=== PATIENT | female | born 1945 | race Caucasian/White ===

== ENCOUNTER 2020-12-04 08:18 | Emergency (ER) | payer MEDICARE, SELFPAY ==
--- NOTE | ~2020-12-04 | CT_ITS ---
EXAMINATION: CT CHEST WITH CONTRAST CLINICAL INFORMATION: Left chest trauma, pain COMPARISON: Chest radiographs 03/09/2012. TECHNIQUE: Multidetector volumetric CT imaging of the chest was obtained after the administration of 65 mL of Omnipaque 350 intravenous contrast without immediate adverse reactions. Axial MIP volume rendering provided. Sagittal and coronal reformatted images were obtained. This CT examination was performed using dose optimization techniques as appropriate, variously including the following: *Automated exposure control *Adjustment of mA and/or kV according to patient size (this includes techniques or standardized protocols for targeted exams where dose is matched to indication/reason for exam; i.e. extremities or head) *Use of iterative reconstruction technique DLP: 167 mGy-cm FINDINGS: LUNGS: There is no pneumothorax or pneumomediastinum. Subsegmental atelectasis is present at the bilateral bases anterior, lateral, and posteriorly left and anterior medial and posterior right. There is no lobar or segmental airspace consolidation or groundglass opacities. Left lung has 2 small calcified granulomata lower zones inferior lingula series 4/354 and anterior basal lower lobe series 4/310. The right lung has punctate nonmineralized nodule right middle lobe under 3 mm series 4/269 and probable short linear endobronchial mucous, series 4/194 lateral upper lobe. MEDIASTINUM: Thoracic aorta normal in caliber and normal enhancement. No aneurysmal enlargement or dissection. No mediastinal hematoma. No mass or adenopathy. Heart normal in size. No pericardial effusion. PLEURA: No pleural thickening or pleural effusion. AXILLA: No lymphadenopathy. UPPER ABDOMEN: Mild hepatic steatosis. There are 2 punctate subcentimeter hypodensities right hepatic lobe too small to characterize, likely tiny cyst. No upper abdominal ascites or free air. OSSEOUS STRUCTURES: Unremarkable. CT/CT chest w con IMPRESSION: 1. No thoracic aortic enlargement or dissection. No mediastinal hematoma. 2. No pneumothorax or pneumomediastinum. No effusion. 3. Bibasilar subsegmental atelectasis. A few scattered tiny pulmonary nodules under 4 mm and probable short linear endobronchial mucous right upper lobe. 4. No visible fracture. Upper abdomen unremarkable. Reference: The Fleischner Society recommendations for management of incidentally detected pulmonary nodules in adults age 35 and greater are based on average nodule size and patient risk category. The recommendations do not apply to lung cancer screening, patients with immunosuppression, or patients with known primary cancer. Single solid nodule average size < 6 mm: Low Risk Patient: No routine follow-up. High Risk Patient: Optional CT at 12 months. Certain patients at high risk with suspicious nodule morphology, upper lobe location, or both may warrant 12-month follow-up. Multiple solid nodules average size < 6 mm: Low Risk Patient: No routine follow-up. High Risk Patient: Optional CT at 12 months. Use most suspicious nodule as guide to management. Follow-up intervals may vary according to size and risk.
[2020-12-04 11:06] VITALS: BP 181/75; PULSE 70; RESP 18; TEMP 37.1; O2SAT 99; BMI 23.8
--- NOTE | 2020-12-04 11:46 | ED.GENADULT ---
HPI - General Adult General Chief complaint: Fall Stated complaint: rib pain Time Seen by Provider: 12/04/20 11:31 Source: patient Mode of arrival: ambulatory Limitations: no limitations History of Present Illness HPI narrative: 75-year-old female who presents emergency department for evaluation of left-sided chest pain after a fall that occurred yesterday. Patient states that yesterday in the morning she was walking her dog up the stairs when the dog got excited and pulled on the leash causing the patient to fall onto the stairs. The patient landed on her left arm and left chest. She states that she developed pain immediately in her arm and chest but the pain was more mild. She states that when she woke up this morning, the pain in her left arm and left chest the severe, sharp, constant and 10/10. The pain is worse with breathing and with movement. She states that she does feel short of breath especially since she cannot take a full breath secondary to her pain. She is experiencing dyspnea on exertion as well. She denied fever, chills, nausea, vomiting, headache, neck pain, abdominal pain, loss of bowel or bladder control. Related Data Allergies Allergy/AdvReac Type Severity Reaction Status Date / Time No Known Allergies Allergy Unverified 06/13/20 15:52 [No Known Allergies*] Review of Systems Review of Systems: Yes all other systems are reviewed and are negative [facility] Past Medical History [facility] Narrative: Past medical history significant for thyroid cancer 40 years ago status post thyroidectomy. She denies tobacco use, she drinks 1 bottle of wine per week, she denies drug use. Medical History (Updated 12/04/20 @ 16:37 by Frederick Wall MD) Thyroid cancer Social History Social History Smoked in Last 30 Days: No Use of substances other than those prescribed or required for medical reasons: No Advance Directives: No Advance Directives Information Provided: No Physical Exam Vital Signs: Vital Signs: Last Vital Signs Temp 98.7 F 12/04/20 11:06 Pulse 60 12/04/20 15:35 Resp 16 12/04/20 15:35 BP 160/65 H 12/04/20 15:35 Pulse Ox 99 12/04/20 15:35 Body Mass Index 23.8 Const: General: cooperative and other (Patient is sitting upright in the stretcher, unable to move secondary to le) Orientation/consciousness: oriented to person and oriented to place Limitations: no limitations HENMT: Head: Yes normal to inspection, Yes normocephalic and Yes atraumatic Ears: external ears normal General nose exam: Normal external nose present Face and sinus: Yes normal facial exam Mouth: Normal oral and palatal mucosa present Throat: Yes posterior oropharynx normal Eyes: Periorbital: periorbital findings normal Eyelids: Yes eyelids normal Conjunctivae: conjunctivae normal Sclerae: sclerae normal Corneas: corneas normal Pupils: Equal, round and reactive pupils present Direct Ophthalmoscopy: normal light reflex Neck: Neck: Yes full ROM, Yes no lymphadenopathy, Yes no meningeal signs, Yes trachea midline and Yes supple Chest: Other: No ecchymosis, no crepitus, patient does have diffuse left lateral chest wall tenderness Chest palpation & inspection: normal inspection of the chest Resp: Effort & Inspection: normal respiratory effort and able to speak in complete sentences Auscultation: clear to auscultation bilaterally Cardio: Rate: regular rate Rhythm: regular rhythm Heart sounds: S1 normal heart sound present, S2 normal heart sound present and no murmurs GI: Inspection: Yes normal to inspection Palpation (GI): Soft to palpation, nontender, no guarding, not rigid and No hepatosplenomegaly present : General: Yes no CVA tenderness Back/Spine/Pelvis: Back: no CVA tenderness Cervical Spine: normal cervical lordosis Thoracic/Lumbar Spine: thoracic and lumbar spine normal to inspection Skin: Lesions: no lesions Rashes: no rashes Wounds: no wounds Neuro: General: oriented to person, oriented to place and no meningeal signs Cranial nerves: Yes CN's II-XII intact bilaterally and Yes Equal, round and reactive pupils present Cognition (Neuro): normal cognition Motor exam (neuro): 5/5 motor strength present throughout Extrem: Other: Ecchymosis to the patient's left proximal humerus, tenderness in this area, full range of motion with no limitations, neurovascularly intact Psych: Appearance: well kempt Mental Status: mental status grossly normal Speech and movement: Normal speech and movement present Affect: normal affect Attitude: cooperative Thought process: Normal thought process present Thought content: Normal thought content present Course Course Course Narrative: 75-year-old female who presents emergency department for evaluation of left-sided chest pain, shortness of breath and dyspnea on exertion after a fall while walking up her stairs, occurring yesterday morning , she landed on her left chest and left arm. Physical examination did reveal significant left lateral chest wall tenderness. I a.m. concerned that the patient may have multiple rib fractures and may have a pulmonary contusion therefore a CT scan of the chest with IV contrast was ordered. I also ordered trauma labs. Patient was also ordered to get Toradol 30 mg IV. 1631: The patient did get improvement with the above medications. Patient's laboratory evaluation was unremarkable. CT scan of the chest did not reveal any acute fractures or process suggesting the patient has a chest wall contusion giving her pain. The radiologist did note an incidental finding : scattered tiny pulmonary nodules under 4 mm noted bibasilarly and recommended follow-up. I did discuss this with the patient and she was advised to contact her doctor to discuss follow-up these pulmonary nodules. Patient was advised to take ibuprofen and Tylenol for pain. She was given verbal and printed instructions and discharged home. Medical Decision Making Lab Data Result diagrams: 12/04/20 12:07 12/04/20 12:07 Labs: Lab Results 12/04/20 12/04/20 12/04/20 Range/Units 12:07 12:07 12:07 WBC 6.3 (4.8-10.8) X10*3/uL RBC 4.75 (4.20-5.50) X10*6/uL Hgb 14.2 (12.0-16.0) g/dl Hct 43.0 (37-47) % MCV 90.5 (80-98) fL MCH 29.9 (27.0-33.0) pg MCHC 33.0 (31.0-35.0) g/dl RDW 12.6 (11.0-16.0) % Plt Count 242 (160-400) X10*3/uL MPV 9.6 (9.4-12.3) fL Immature Gran % (Auto) 0.5 H (0.0-0.4) % Neut % (Auto) 54.4 (45-73) % Lymph % (Auto) 27.3 (20-40) % Pettis % (Auto) 15.3 H (2-11) % Eos % (Auto) 1.9 (0-4) % Baso % (Auto) 0.6 (0-2) % Lymph # (Auto) 1.7 (1.2-4.9) X10*3/uL Pettis # (Auto) 1.0 (0.1-1.2) X10*3/uL Eos # (Auto) 0.1 (0.0-0.4) X10*3/uL Baso # (Auto) 0.0 (0.0-0.2) X10*3/uL Abs Immat Gran (auto) 0.03 (0.00-0.03) X10*3/uL Absolute Neuts (auto) 3.4 (2.0-8.3) X10*3/uL Absolute Nucleated RBC 0.000 (0.0-0.012) X10*3/uL Nucleated RBC % (auto) 0.0 (0.0-0.2) /100WBC PT 11.7 (10.8-13.0) SEC INR 1.0 (0.9-1.1) APTT 33.6 (24.1-38.0) SEC Sodium 140 (135-145) mmol/L Potassium 4.6 (3.3-5.1) mmol/L Chloride 106 (96-108) mmol/L Carbon Dioxide 26 (22-29) mmol/L Anion Gap 13 (12-20) BUN 22 H (9-16) mg/dL Creatinine 0.79 (0.5-1.4) mg/dL Estim Creat Clear Calc 47.1 Estimated GFR > 60 Random Glucose 85 (60-115) mg/dL Calcium 8.5 (8.4-10.2) mg/dL Total Bilirubin 0.8 (0.0-1.0) mg/dL AST 18 (5-31) U/L ALT 21 (0-31) U/L Alkaline Phosphatase 74 (39-117) U/L Total Protein 6.5 (6.5-8.0) g/dL Albumin 4.3 (3.5-5.0) g/dL Discharge Plan Discharge Clinical Impression: Chest wall contusion Qualifiers: Encounter type: initial encounter Laterality: left Qualified Code(s): S20.212A - Contusion of left front wall of thorax, initial encounter Contusion of arm, left Qualifiers: Encounter type: initial encounter Qualified Code(s): S40.022A - Contusion of left upper arm, initial encounter Patient Disposition: Home, Self-Care Instructions: Rib Contusion (ED) Additional Instructions: The CT scan of your chest did not reveal any rib fractures or damage to your lungs from the fall which is very encouraging. Take ibuprofen 200 mg pills, 3 pills every 6 hours as needed for pain. Take Tylenol (acetaminophen) 500 mg pills, 2 pills every 4 to 6 hours as needed for pain. The radiologist noted that you have a few small nodules in the lower part of both of your lungs. Based on my interpretation of the radiology reading below, you will need a follow-up CT scan of your lungs in 6-12 months. Please contact your doctor to discuss getting a follow-up CT scan of your lungs. To help your doctor, I did pace the radiology reading below and you can show this reading to your doctor that help determine the appropriate follow-up interval. Radiologist impression: LUNGS: There is no pneumothorax or pneumomediastinum. Subsegmental atelectasis is present at the bilateral bases anterior, lateral, and posteriorly left and anterior medial and posterior right. There is no lobar or segmental airspace consolidation or groundglass opacities. Left lung has 2 small calcified granulomata lower zones inferior lingula series 4/354 and anterior basal lower lobe series 4/310. The right lung has punctate nonmineralized nodule right middle lobe under 3 mm series 4/269 and probable short linear endobronchial mucous, series 4/194 lateral upper lobe. MEDIASTINUM: Thoracic aorta normal in caliber and normal enhancement. No aneurysmal enlargement or dissection. No mediastinal hematoma. No mass or adenopathy. Heart normal in size. No pericardial effusion. PLEURA: No pleural thickening or pleural effusion. AXILLA: No lymphadenopathy. UPPER ABDOMEN: Mild hepatic steatosis. There are 2 punctate subcentimeter hypodensities right hepatic lobe too small to characterize, likely tiny cyst. No upper abdominal ascites or free air. OSSEOUS STRUCTURES: Unremarkable. CT/CT chest w con IMPRESSION: 1. No thoracic aortic enlargement or dissection. No mediastinal hematoma. 2. No pneumothorax or pneumomediastinum. No effusion. 3. Bibasilar subsegmental atelectasis. A few scattered tiny pulmonary nodules under 4 mm and probable short linear endobronchial mucous right upper lobe. 4. No visible fracture. Upper abdomen unremarkable. Reference: The Fleischner Society recommendations for management of incidentally detected pulmonary nodules in adults age 35 and greater are based on average nodule size and patient risk category. The recommendations do not apply to lung cancer screening, patients with immunosuppression, or patients with known primary cancer. Single solid nodule average size < 6 mm: Low Risk Patient: No routine follow-up. High Risk Patient: Optional CT at 12 months. Certain patients at high risk with suspicious nodule morphology, upper lobe location, or both may warrant 12-month follow-up. Multiple solid nodules average size < 6 mm: Low Risk Patient: No routine follow-up. High Risk Patient: Optional CT at 12 months. Use most suspicious nodule as guide to management. Follow-up intervals may vary according to size and risk. Dictated By:INDER SPEARS MDSigned By:<Electronically signed by INDER SPEARS MD in [place]>
[2020-12-04 12:12] LABS: MANUAL DIFF FLAG NO
[2020-12-04 12:13] LABS: Basophils Percent Auto 0.6 % (0-2); Eosinophils Absolute Auto 0.1 X10*3/uL (0.0-0.4); Eosinophils Percent Auto 1.9 % (0-4); Hemoglobin 14.2 g/dl (12.0-16.0); Imm Gran Abs Auto 0.03 X10*3/uL (0.00-0.03); Imm Gran Pct Auto 0.5 % (0.0-0.4); Lymphocytes Absolute Auto 1.7 X10*3/uL (1.2-4.9); Lymphocytes Percent Auto 27.3 % (20-40); Mean Corpuscular Hemoglobin 29.9 pg (27.0-33.0); Mean Corpuscular Volume 90.5 fL (80-98); Mean Platelet Volume 9.6 fL (9.4-12.3); Monocytes Percent Auto 15.3 % (2-11); Neutrophils Absolute Auto 3.4 X10*3/uL (2.0-8.3); Neutrophils Percent Auto 54.4 % (45-73); Platelet Count 242 X10*3/uL (160-400); Red Blood Count 4.75 X10*6/uL (4.20-5.50); Red Cell Distribution Width 12.6 % (11.0-16.0); White Blood Count 6.3 X10*3/uL (4.8-10.8)
[2020-12-04] MEDS: Ketorolac Tromethamine 30 MG/ML VIAL IVPUSH (12:13)
[2020-12-04 12:18] LABS: Prothrombin Time 11.7 SEC (10.8-13.0)
[2020-12-04 12:21] LABS: Partial Thromboplastin Time 33.6 SEC (24.1-38.0)
[2020-12-04 12:45] LABS: Alanine Aminotransferase 21 U/L (0-31); Albumin Level 4.3 g/dL (3.5-5.0); Alkaline Phosphatase 74 U/L (39-117); Anion Gap 13 (12-20); Aspartate Amino Transferase 18 U/L (5-31); Bilirubin Total 0.8 mg/dL (0.0-1.0); Blood Urea Nitrogen 22 mg/dL (9-16); Calcium 8.5 mg/dL (8.4-10.2); Carbon Dioxide 26 mmol/L (22-29); Chloride 106 mmol/L (96-108); Creatinine Clr Calc Pharmacy 47.1; Estimated Glomerular Filt Rate > 60; Glucose Random 85 mg/dL (60-115); Potassium 4.6 mmol/L (3.3-5.1); Sodium 140 mmol/L (135-145); Total Protein 6.5 g/dL (6.5-8.0)
[2020-12-04 13:18] VITALS: BP 154/75; PULSE 63; RESP 16; O2SAT 100
--- NOTE | 2020-12-04 13:19 | PC.NURSE ---
patient reports pain somewhat improved after medicated. offered to patient that md would order stronger pain medications, patient unsure if she wants to take stronger meds. rn informed patient if pain becomes intolerable and decides to take medication to let rn know. patient agrees.
[2020-12-04] MEDS: iohexoL 350 MG/ML 75 ML INFUS..BTL IV (14:14)
[2020-12-04 15:35] VITALS: BP 160/65; PULSE 60; RESP 16; O2SAT 99
== END 2020-12-04 16:50 | disposition home or self-care (01) ==
PROVIDERS: Emergency Provider Emergency Medicine Emergency Medical Services; PCP Internal Medicine
DX: S20.212A Contusion of left front wall of thorax, initial encounter (principal); S40.022A Contusion of left upper arm, initial encounter; M79.602 Pain in left arm; R07.81 Pleurodynia; W10.9XXA Fall (on) (from) unspecified stairs and steps, initial encounter; Y93.K1 Activity, walking an animal; Y92.009 Unspecified place in unspecified non-institutional (private) residence as the place of occurrence of the external cause; Y99.9 Unspecified external cause status
CPT/HCPCS: 36415; 71260; 80053; 85025; 85610; 85730; 96374; 99284; J1885; Q9967

== ENCOUNTER 2021-05-27 09:57 | Outpatient (REF) | payer MEDICARE, SELFPAY ==
--- NOTE | ~2021-05-27 | XR_ITS ---
EXAMINATION: XR SHOULDER, RIGHT CLINICAL INFORMATION: Right shoulder pain. COMPARISON: None TECHNIQUE: AP external rotation, Grashey, scapular Y, and axillary views of the right shoulder. FINDINGS: There is osteopenia. There is no fracture or malalignment. The glenohumeral joint is unremarkable. There is mild osteoarthritis of the acromioclavicular joint, new since the prior study. XR/XR shoulder RT min 2V IMPRESSION: Unremarkable glenohumeral joint. New mild osteoarthritis of the acromioclavicular joint.
[2021-05-27 10:32] LABS: MANUAL DIFF FLAG NO
[2021-05-27 10:34] LABS: Basophils Percent Auto 0.7 % (0-2); Eosinophils Absolute Auto 0.2 X10*3/uL (0.0-0.4); Eosinophils Percent Auto 2.8 % (0-4); Hematocrit 41.5 % (37-47); Hemoglobin 13.5 g/dl (12.0-16.0); Imm Gran Abs Auto 0.02 X10*3/uL (0.00-0.03); Imm Gran Pct Auto 0.4 % (0.0-0.4); Lymphocytes Absolute Auto 1.7 X10*3/uL (1.2-4.9); Lymphocytes Percent Auto 31.5 % (20-40); Mean Corpuscular HGB Conc 32.5 g/dl (31.0-35.0); Mean Corpuscular Hemoglobin 29.4 pg (27.0-33.0); Mean Corpuscular Volume 90.4 fL (80-98); Mean Platelet Volume 9.7 fL (9.4-12.3); Monocytes Absolute Auto 0.8 X10*3/uL (0.1-1.2); Neutrophils Absolute Auto 2.7 X10*3/uL (2.0-8.3); Neutrophils Percent Auto 49.6 % (45-73); Platelet Count 231 X10*3/uL (160-400); Red Blood Count 4.59 X10*6/uL (4.20-5.50); Red Cell Distribution Width 12.4 % (11.0-16.0); White Blood Count 5.3 X10*3/uL (4.8-10.8)
[2021-05-27 10:53] LABS: Alanine Aminotransferase 15 U/L (0-31); Albumin Level 4.2 g/dL (3.5-5.0); Alkaline Phosphatase 68 U/L (39-117); Anion Gap 10 (12-20); Aspartate Amino Transferase 17 U/L (5-31); Blood Urea Nitrogen 15 mg/dL (9-16); Calcium 8.9 mg/dL (8.4-10.2); Carbon Dioxide 27 mmol/L (22-29); Chloride 108 mmol/L (96-108); Cholesterol 254 mg/dL; Estimated Glomerular Filt Rate 60; Glucose Fasting 92 mg/dL (60-99); HDL Cholesterol 59 mg/dL; LDL Cholesterol Calculated 170 mg/dl; Potassium 4.6 mmol/L (3.3-5.1); Sodium 140 mmol/L (135-145); Total Protein 6.4 g/dL (6.5-8.0); Triglycerides 127 mg/dL
[2021-05-27 11:16] LABS: Vitamin D 25-OH Total 23.1 ng/mL (>30)
== END 2021-05-27 09:58 | disposition home or self-care (01) ==
LOC: HO.XRAY 09:57
PROVIDERS: PCP Internal Medicine; Visit Provider Internal Medicine
DX: M25.511 Pain in right shoulder (principal); E78.00 Pure hypercholesterolemia, unspecified; E55.9 Vitamin D deficiency, unspecified; E03.9 Hypothyroidism, unspecified
CPT/HCPCS: 36415; 73030; 80053; 80061; 82306; 84439; 84443; 85025

== ENCOUNTER 2021-07-29 13:33 | Outpatient (REF) | payer MEDICARE, SELFPAY ==
--- NOTE | ~2021-07-29 | MM_ITS ---
EXAMINATION: BONE DENSITOMETRY CLINICAL INDICATION: Screening for osteoporosis. COMPARISON: Previous BD dated 05/16/2015 and baseline BD dated 09/25/2009. TECHNIQUE: Using a [employer] DXA System (software version: 13.1) manufactured by [employer], dual-energy x-ray absorptiometry was performed of the lumbar spine and left hip. The images are of good technical quality. Summary results are attached. FINDINGS: AP SPINE L1-L3 (excluding L4): The data of L1-L4 has been changed to exclude the L4 vertebral body, because degenerative changes at this level may cause overestimation of lumbar spine density. Current: BMD 0.923 g/cm2, Z-score -0.1, T-score -2.1, osteopenia, 4.8% increase from previous, 1.5% decrease from baseline (<5% change is not significant). Prior: BMD 0.881 g/cm2. Baseline: BMD 0.937 g/cm2. LEFT FEMUR, NECK: Current: BMD 0.573 g/cm2, Z-score -1.2, T-score -3.3, osteoporosis. Prior: BMD 0.704 g/cm2. Baseline: BMD 0.696 g/cm2. LEFT FEMUR, TOTAL: Current: BMD 0.656 g/cm2, Z-score -0.8, T-score -2.8, osteoporosis, 9.6% decrease from previous, 15.1% decrease from baseline (<5% change is not significant). Prior: BMD 0.726 g/cm2. Baseline: BMD 0.773 g/cm2. IDENTIFIED RISK FACTORS: Menopause, history of fracture (adult). HISTORY OF FRACTURE: Forearm, Age 73; Humerus, Age 22. MEDICATIONS: None listed. MM/XR DEXA axial skeleton IMPRESSION: 1. DIAGNOSIS: Osteoporosis based on the lowest T-score value of -3.3 in the femoral neck applying World Health Organization criteria. 2. 10-YEAR FRACTURE RISK PREDICTION, FRAX: According to the guidelines, FRAX calculation should only be performed on patients in the osteopenia bone density category. 3. Treatment Recommendations: NOF guidelines recommend consideration for treatment in postmenopausal women and men age 50 and older presenting with the following: -A hip or vertebral (clinical or morphometric) fracture. -T-score less than or equal to -2.5 at the femoral neck or spine after appropriate evaluation to exclude secondary causes. -Low bone mass at the hip or spine and a 10-year fracture probability by FRAX of greater than or equal to 3% for hip fracture or greater than or equal to 20% for major osteoporotic fracture based on the [place] adapted WHO algorithm. 4. Other Recommendations: All treatment decisions require clinical judgment and consideration of individual patient factors, including patient preferences, comorbidities, previous drug use, risk factors not captured in the FRAX model (e.g. frailty, falls, vitamin D deficiency, increased bone turnover, interval significant decline in bone density) and possible under or overestimation of fracture risk by FRAX. Additional medical evaluation for secondary cause of low bone mineral density may be appropriate. FUTURE SCAN RECOMMENDATION: People with diagnosed cases of osteoporosis or at high risk for fracture should have regular bone mineral density tests. For patients eligible for Medicare, routine testing is allowed once every 2 years. The testing frequency can be increased to one year for patients who have rapidly progressing disease, those who are receiving or discontinuing medical therapy to restore bone mass, or have additional risk factors.
--- NOTE | ~2021-07-29 | MM_ITS ---
EXAMINATION: MM SCREENING DIGITAL BREAST TOMOSYNTHESIS, BILATERAL CLINICAL INFORMATION: Screening. Asymptomatic. The lifetime risk of breast cancer based on the Tyrer-Cuzick Model is 3%. COMPARISON: Mammography: 04/05/2019, 01/07/2017 TECHNIQUE: Digital breast tomosynthesis is performed in both the craniocaudal and mediolateral oblique views along with computer-aided detection (CAD). Synthesized 2D images are generated from the tomosynthesis. Additional right MLO view is provided. FINDINGS: There are scattered areas of fibroglandular density (ACR BI-RADS breast composition Category b). Breast tissue composition borders on predominantly fatty. The left MLO view has an oval asymmetric density at the posterior inferior breast near skin surface likely artifact from a skin fold or possibly a dermal lesion. Patient will be recalled for additional imaging. The breasts are otherwise unremarkable with no interval mass or architectural abnormality or abnormal calcifications. The axilla are unremarkable. MM/MM tomosynthesis screening BI IMPRESSION: 1. Left: Asymmetric density posterior inferior breast on MLO view near film margin, possibly artifact from skin fold or dermal lesion. 2. Right: No mammographic evidence of malignancy. ASSESSMENT: BI-RADS 0: Incomplete - Need Additional Imaging Evaluation RECOMMENDATION: 1. Assess for dermal lesion and obtain additional views with dermal marker if applicable. Otherwise, repeat MLO targeted to the posterior inferior breast. 2. Targeted ultrasound if warranted after review of the additional views. 3. Radiology department staff will contact the patient for additional imaging. This patient's information was entered into a reminder system with a target due date for their next mammogram.
== END 2021-07-29 13:34 | disposition home or self-care (01) ==
LOC: HO.MAMMO 13:33
PROVIDERS: Visit Provider Internal Medicine
DX: Z13.820 Encounter for screening for osteoporosis (principal); Z78.0 Asymptomatic menopausal state; Z12.31 Encounter for screening mammogram for malignant neoplasm of breast
CPT/HCPCS: 77063; 77067; 77080

== ENCOUNTER 2021-08-12 13:18 | Outpatient (REF) | payer MEDICARE, SELFPAY ==
--- NOTE | ~2021-08-12 | MM_ITS ---
EXAMINATION: MM DIAGNOSTIC DIGITAL BREAST TOMOSYNTHESIS, LEFT CLINICAL INFORMATION: Recall from screening for asymmetric density posterior lower outer left breast, possibly dermal artifact. COMPARISON: Mammography: 07/29/2021, 04/05/2019, 01/07/2017 TECHNIQUE: Digital breast tomosynthesis is performed. 2D images are generated from the tomosynthesis. The following views are obtained: MLO, spot MLO FINDINGS: There are scattered areas of fibroglandular density (ACR BI-RADS breast composition Category b). The additional views show no persistent asymmetric density in the area of interest. There is no mass or architectural abnormality. Results are discussed with the patient at time of visit. MM/MM tomosynthesis added views L IMPRESSION: Additional views show no persistent asymmetric density. ASSESSMENT: BI-RADS 1: Negative RECOMMENDATION: Routine annual mammography screening. This patient's information was entered into a reminder system with a target due date for their next mammogram.
== END 2021-08-12 13:19 | disposition home or self-care (01) ==
LOC: HO.MAMMO 13:18
PROVIDERS: PCP Internal Medicine; Visit Provider Internal Medicine
DX: R92.2 Inconclusive mammogram (principal)
CPT/HCPCS: 77061; 77065

== ENCOUNTER 2022-07-31 14:17 | Outpatient (REF) | payer MEDICARE, SELFPAY ==
--- NOTE | ~2022-07-31 | MR_ITS ---
EXAMINATION: MR CERVICAL SPINE WITHOUT CONTRAST CLINICAL INFORMATION: Neuropathy with right radiating distribution. COMPARISON: Cervical spine MRI 08/16/2009. TECHNIQUE: MRI of the cervical spine was performed using routine sequences without contrast. FINDINGS: The cervical vertebral bodies maintain normal heights. There is mild anterolisthesis of C4 on C5 and C6 on C7. There is severe disc height loss at C5-C6 and moderate disc height loss at C6-C7. Subchondral endplate edema is seen at C5-C6. There is mild edema about the left-sided C4-C5 facet. No cervical cord signal abnormality is seen. The imaged intracranial contents appear normal. The extraspinal soft tissues appear normal. SPINAL LEVELS: C2-C3: No posterior disc abnormality. No spinal canal or neural foraminal stenosis. C3-C4: No posterior disc abnormality. Right facet ankylosis. Moderate left facet arthropathy. No spinal canal or neural foraminal stenosis. C4-C5: No posterior disc abnormality. Severe left and mild right facet arthropathy. No spinal canal or neural foraminal stenosis. C5-C6: Disc osteophyte complex with uncovertebral hypertrophy and ligamentum flavum infolding resulting in progressive now moderate spinal canal stenosis. Moderate facet arthropathy. Severe bilateral neural foraminal stenosis, progressed from prior. C6-C7: Disc osteophyte complex with ligamentum flavum infolding and uncovertebral hypertrophy resulting in severe spinal canal stenosis and mild left neural foraminal stenosis. C7-T1: Disc osteophyte complex asymmetric to the left with uncovertebral hypertrophy resulting in progressive moderate left neural foraminal stenosis. No spinal canal stenosis. MR/MR cervical spine wo con IMPRESSION: 1. Multilevel degenerative spondylotic changes with interval progression compared with 2008. 2. At C5-C6 there is progressive now moderate spinal canal stenosis and severe bilateral neural foraminal stenosis. 3. At C6-C7 there is progressive severe spinal canal stenosis and mild left neural foraminal stenosis. 4. At C7-T1 there is progressive moderate left neural foraminal stenosis.
== END 2022-07-31 14:18 | disposition home or self-care (01) ==
LOC: HO.MRI 14:17
PROVIDERS: Visit Provider Internal Medicine
DX: G56.91 Unspecified mononeuropathy of right upper limb (principal)
CPT/HCPCS: 72141

== ENCOUNTER 2022-08-21 07:04 | Outpatient (REF) | payer MEDICARE, SELFPAY ==
[2022-08-21 07:13] LABS: MANUAL DIFF FLAG NO
[2022-08-21 07:30] LABS: Basophils Absolute Auto 0.1 X10*3/uL (0.0-0.2); Basophils Percent Auto 0.9 % (0-2); Eosinophils Absolute Auto 0.3 X10*3/uL (0.0-0.4); Eosinophils Percent Auto 4.9 % (0-4); Hematocrit 41.3 % (37.0-47.0); Hemoglobin 13.6 g/dl (12.0-16.0); Imm Gran Abs Auto 0.02 X10*3/uL (0.00-0.03); Imm Gran Pct Auto 0.3 % (0.0-0.4); Lymphocytes Absolute Auto 2.1 X10*3/uL (1.2-4.9); Lymphocytes Percent Auto 36.1 % (20-40); Mean Corpuscular HGB Conc 32.9 g/dl (31.0-35.0); Mean Corpuscular Hemoglobin 29.5 pg (27.0-33.0); Mean Corpuscular Volume 89.6 fL (80.0-98.0); Monocytes Absolute Auto 0.9 X10*3/uL (0.1-1.2); Monocytes Percent Auto 15.6 % (2-11); Neutrophils Absolute Auto 2.4 x10*3/uL (2.0-8.3); Neutrophils Percent Auto 42.2 % (45-73); Platelet Count 225 X10*3/uL (160-400); Red Blood Count 4.61 X10*6/uL (4.20-5.50); Red Cell Distribution Width 13.2 % (11.0-16.0); White Blood Count 5.8 X10*3/uL (4.8-10.8)
[2022-08-21 07:52] LABS: Alanine Aminotransferase 19 U/L (0-31); Albumin Level 4.2 g/dL (3.5-5.0); Alkaline Phosphatase 72 U/L (39-117); Anion Gap 14 (12-20); Aspartate Amino Transferase 19 U/L (5-31); Bilirubin Total 0.6 mg/dL (0.0-1.0); Blood Urea Nitrogen 22 mg/dL (9-16); Carbon Dioxide 25 mmol/L (22-29); Chloride 107 mmol/L (96-108); Cholesterol 291 mg/dL; Estimated Glomerular Filt Rate 58; Glucose Fasting 100 mg/dL (60-99); HDL Cholesterol 57 mg/dL; LDL Cholesterol Calculated 214 mg/dl; Potassium 4.3 mmol/L (3.3-5.1); Sodium 142 mmol/L (135-145); Total Protein 6.5 g/dL (6.5-8.0); Triglycerides 104 mg/dL
[2022-08-21 08:15] LABS: Free T4 (Free Thyroxine) 1.08 ng/dL (0.71-1.85); Thyroid Stimulating Hormone 5.15 uIU/mL (0.32-4.0)
[2022-08-21 08:38] LABS: Vitamin D 25-OH Total 21.4 ng/mL (>30)
== END 2022-08-21 07:05 | disposition home or self-care (01) ==
LOC: HO.LAB 07:04
PROVIDERS: PCP Internal Medicine; Visit Provider Internal Medicine
DX: E03.9 Hypothyroidism, unspecified (principal); E78.00 Pure hypercholesterolemia, unspecified; E55.9 Vitamin D deficiency, unspecified
CPT/HCPCS: 36415; 80053; 80061; 82306; 84439; 84443; 85025

== ENCOUNTER 2022-12-29 08:33 | Outpatient (REF) | payer MEDICARE, SELFPAY ==
[2022-12-29 12:22] LABS: Cholesterol 243 mg/dL; HDL Cholesterol 59 mg/dL; LDL Cholesterol Calculated 163 mg/dl; Triglycerides 105 mg/dL
== END 2022-12-29 08:34 | disposition home or self-care (01) ==
LOC: HO.HMGCLDS 08:33
PROVIDERS: PCP Internal Medicine; Visit Provider Internal Medicine
DX: E78.00 Pure hypercholesterolemia, unspecified (principal)
CPT/HCPCS: 36415; 80061

== ENCOUNTER 2023-03-19 19:24 | Emergency (ER) | payer MEDICARE, SELFPAY ==
[2023-03-19 19:38] VITALS: BP 119/77; PULSE 80; RESP 18; TEMP 36.6; O2SAT 100
--- NOTE | 2023-03-19 19:39 | ED_ITS ---
HPI - General Adult General Chief complaint: General Medical Stated complaint: R leg swelling Source: patient Mode of arrival: ambulatory Limitations: no limitations History of Present Illness HPI narrative: Patient is a 77 year old assigned female at with no reported medical history presenting to the emergency department today with right lower leg swelling and pain. Patient states that she noticed that her right lower leg was significantly more swollen than her left leg today. Patient states that she was working in the garden yesterday and noticed a red spot on the front of her leg today. Patient states that she was at the urgent care and they recommended she come to the ER. Patient denies any dizziness, lightheadedness, abdominal pain, nausea, vomiting, fever, chills, blurry vision, double vision, loss of vision, chest pain, difficulty breathing, shortness of breath, back pain, night sweats, pain with urination, increased urinary frequency, increased urinary urgency, blood in her urine or stool, syncope or a near syncopal episode, recent trauma or falls, bowel incontinence, bladder incontinence, bowel retention, bladder retention, or any other complaints at this time. Onset (ago): day(s) (1) Location: right and lower extremity Severity: mild Severity scale (1-10): 3 Quality: aching Pain Consistency: constant Relieving factors: none Exacerbating factors: none Associated symptoms: denies other symptoms Treatments prior to arrival: none Related Data Allergies Allergy/AdvReac Type Severity Reaction Status Date / Time No Known Allergies Allergy Verified 03/19/23 19:38 [No Known Allergies*] Review of Systems Constitutional: Constitutional: Reports no additional constitutional complaints, Denies chills, Denies fever(s) and Denies night sweats Eyes: Eyes: Reports no additional eye complaints, Denies blurry vision, Denies change in vision, Denies diplopia, Denies eye discharge, Denies loss of vision and Denies eye pain ENT: Denies dizziness Cardiovascular: Cardiovascular: Reports no additional cardiovascular complaints, Denies chest pain, Denies lightheadedness, Denies Loss of Consciousness and Denies dyspnea Respiratory: Respiratory: Reports no additional respiratory complaints and Denies dyspnea Gastrointestinal: Gastrointestinal: Reports no additional gastrointestinal complaints, Denies abdominal pain, Denies melena, Denies hematochezia, Denies change in bowel habits and Denies change in stool character Genitourinary: Genitourinary: Denies hematuria, Denies urinary frequency, Denies dysuria, Denies urinary incontinence, Denies urinary hesitancy and Denies urinary urgency Musculoskeletal: Musculoskeletal: Reports no additional musculoskeletal complaints, Denies numbness and Denies tingling Comments: right lower leg swelling with a small red area Neurologic: Denies dizziness, Denies loss of vision, Denies numbness and Denies tingling Psychiatric: Psychiatric: Reports no additional psychiatric complaints Endocrine: Endocrine: Reports no additional endocrine complaints Hematologic/Lymphatic: Hematologic/Lymphatic: Reports no additional hematologic/lymphatic complaints Allergic/Immunologic: Allergic/Immunologic: Reports no additional allergic/immunologic complaints [facility] Past Medical History Attestation statement: The following information was validated with the patient. Source: old records reviewed and nursing notes reviewed Medical History Thyroid cancer Physical Exam ED Vital Signs: Vital Signs - 24 hr 03/19/23 19:38 Temperature 97.8 F Pulse Rate 80 Respiratory Rate 18 Blood Pressure 119/77 Pulse Oximetry 100 Oxygen Delivery Method Room Air BMI result Body Mass Index 0.3 Const General: cooperative, no acute distress, alert and awake Nutritional Appearance: well nourished Orientation/consciousness: patient oriented x3 Limitations: no limitations HENMT Head: Yes normal to inspection and Yes atraumatic Ears: hearing grossly normal bilaterally and external ears normal General nose exam: Normal external nose present, no nasal discharge noted and no epistaxis Face and sinus: Yes normal facial exam, No abrasion and No laceration Mouth: Normal oral and palatal mucosa present, no drooling and no muffled voice Eyes General: appearance normal, both eyes and all related structures Periorbital: periorbital findings normal Eyelids: Yes eyelids normal Conjunctivae: conjunctivae normal Pupils: Equal, round and reactive pupils present EOM: EOMs intact bilaterally Neck Neck: Yes normal visual inspection, Yes full ROM and Yes no lymphadenopathy Chest Chest palpation & inspection: normal inspection of the chest Resp Effort & Inspection: normal respiratory effort and able to speak in complete sentences GI Inspection: Yes normal to inspection Neuro General: patient oriented x3 and moves all extremities Cranial nerves: Yes Equal, round and reactive pupils present Cognition (Neuro): normal cognition Motor exam (neuro): 5/5 motor strength present throughout Sensory Exam: Normal double simultaneous stimulation for sensation Coordination: [id number] test normal Extrem Other: swelling to the right lower extremity with a small area of blotchy redness to the anterior right lower leg, no warmth General: Yes full ROM and Yes capillary refill normal Psych Appearance: grossly normal Mental Status: mental status grossly normal Affect: normal affect Attitude: cooperative Thought process: Normal thought process present Thought content: Normal thought content present Insight: Good insight present (Psych) Course Course Course Narrative: RME performed by Sharon Corrigan PA-C. Patient is a 77 year old assigned female at presenting to the emergency department with right lower leg swelling and pain. US ordered. Patient placed back in the waiting room pending room availability and results. Medical Decision Making Medical Decision Making MDM Narrative: Patient is a 77 year old assigned female at with no reported medical history presenting to the emergency department today with right lower leg pain. Patient's physical exam was as noted in the physical exam portion of this chart. I explained my physical exam findings to the patient. I answered all questions asked by the patient. I ordered an US of the right lower extremity to rule out DVT however, the patient eloped before this test could be performed. Differential Diagnosis Differential Diagnoses: The differential diagnosis associated with the presentation includes DVT, right lower leg swelling, right lower leg pain, cellulitis Discharge Plan Discharge Clinical Impression: Lower extremity pain Patient Disposition: Elopement
--- NOTE | 2023-03-19 20:14 | PC.NURSE ---
pt unable to stay in the ed any longer due to at home is a quadriplegic and she can not stay any longer. s/s of infection review with pt due to small red area to lower leg. pt states she will [facility] to [facility] in the morning.
== END 2023-03-19 23:29 | disposition left against medical advice (07) ==
LOC: HO.ED 20:43
PROVIDERS: Emergency Provider Emergency Medicine; PCP Internal Medicine
DX: R60.0 Localized edema (principal)
CPT/HCPCS: 99281

== ENCOUNTER 2023-04-29 09:00 | Outpatient (REF) | payer MEDICARE, SELFPAY ==
[2023-04-29 11:55] LABS: Cholesterol 209 mg/dL; HDL Cholesterol 56 mg/dL; LDL Cholesterol Calculated 135 mg/dl; Triglycerides 90 mg/dL
== END 2023-04-29 09:01 | disposition home or self-care (01) ==
LOC: HO.HMGCLDS 09:00
PROVIDERS: PCP Internal Medicine; Visit Provider Internal Medicine
DX: E78.00 Pure hypercholesterolemia, unspecified (principal)
CPT/HCPCS: 36415; 80061

== ENCOUNTER → 2023-12-02 12:54 | Outpatient (REF) | payer MEDICARE, SELFPAY ==
--- NOTE | 2023-12-02 12:58 | HM_ITS ---
Conclusion: 1. Patient was monitored for total period of 2 days and 23 hours 2. Baseline was normal sinus rhythm with average heart of 70 beats per minute 3. Frequent PVCs noted with total burden of 1.8% 4. No significant pauses noted 5. No patient reported events MTDD
== END ==
LOC: HO.CARD 12:54
PROVIDERS: PCP Internal Medicine; Visit Provider Internal Medicine
DX: R00.2 Palpitations (principal); E03.9 Hypothyroidism, unspecified
CPT/HCPCS: 93242

== ENCOUNTER → 2023-12-02 12:58 | Outpatient (BNV) | payer MEDICARE, SELFPAY | PROVIDERS: PCP Internal Medicine; Visit Provider Internal Medicine Cardiovascular Disease | DX: I49.3 Ventricular premature depolarization (principal) | CPT/HCPCS: 93244 ==

== ENCOUNTER 2023-12-03 08:18 | Outpatient (REF) | payer MEDICARE, SELFPAY ==
[2023-12-03 08:33] LABS: MANUAL DIFF FLAG NO
[2023-12-03 08:53] LABS: Basophils Percent Auto 0.4 % (0-2); Eosinophils Absolute Auto 0.2 X10*3/uL (0.0-0.4); Eosinophils Percent Auto 3.9 % (0-4); Hematocrit 42.2 % (37.0-47.0); Hemoglobin 13.9 g/dl (12.0-16.0); Imm Gran Abs Auto 0.02 X10*3/uL (0.00-0.03); Imm Gran Pct Auto 0.4 % (0.0-0.4); Lymphocytes Absolute Auto 1.8 X10*3/uL (1.2-4.9); Lymphocytes Percent Auto 34.1 % (20-40); Mean Corpuscular HGB Conc 32.9 g/dl (31.0-35.0); Mean Corpuscular Hemoglobin 29.4 pg (27.0-33.0); Mean Corpuscular Volume 89.4 fL (80.0-98.0); Mean Platelet Volume 9.7 fL (9.4-12.3); Monocytes Absolute Auto 0.7 X10*3/uL (0.1-1.2); Monocytes Percent Auto 13.6 % (2-11); Neutrophils Absolute Auto 2.6 x10*3/uL (2.0-8.3); Neutrophils Percent Auto 47.6 % (45-73); Platelet Count 280 X10*3/uL (160-400); Red Blood Count 4.72 X10*6/uL (4.20-5.50); Red Cell Distribution Width 12.9 % (11.0-16.0); White Blood Count 5.4 X10*3/uL (4.8-10.8)
[2023-12-03 09:29] LABS: Alanine Aminotransferase 13 U/L (0-31); Albumin Level 4.3 g/dL (3.5-5.0); Alkaline Phosphatase 85 U/L (39-117); Anion Gap 12 (12-20); Aspartate Amino Transferase 17 U/L (5-31); Bilirubin Total 0.9 mg/dL (0.0-1.0); Blood Urea Nitrogen 15 mg/dL (9-16); Carbon Dioxide 27 mmol/L (22-29); Chloride 108 mmol/L (96-108); Cholesterol 276 mg/dL (<200); Estimated Glomerular Filt Rate 56; Glucose Random 97 mg/dL (60-115); HDL Cholesterol 77 mg/dL (>40); LDL Cholesterol Calculated 183 mg/dL (<100); Magnesium 2.1 mg/dL (1.6-2.6); Potassium 4.3 mmol/L (3.3-5.1); Sodium 143 mmol/L (135-145); Total Protein 6.8 g/dL (6.5-8.0); Triglycerides 80 mg/dL (<150)
[2023-12-03 09:49] LABS: Free T4 (Free Thyroxine) 1.12 ng/dL (0.71-1.85); Thyroid Stimulating Hormone 0.97 uIU/mL (0.32-4.0)
== END 2023-12-03 08:19 | disposition home or self-care (01) ==
LOC: HO.LAB 08:18
PROVIDERS: PCP Internal Medicine; Visit Provider Internal Medicine
DX: E03.9 Hypothyroidism, unspecified (principal); E78.00 Pure hypercholesterolemia, unspecified; R00.2 Palpitations
CPT/HCPCS: 36415; 80053; 80061; 83735; 84439; 84443; 85025

== ENCOUNTER 2024-06-08 16:20 | Outpatient (REF) | payer MEDICARE, SELFPAY ==
--- NOTE | ~2024-06-08 | XR_ITS ---
EXAMINATION: XR HAND, LEFT CLINICAL INFORMATION: Left hand pain. COMPARISON: None available. TECHNIQUE: PA, lateral, and oblique views of the left hand. FINDINGS: Ring finger: Patient's radiopaque ring remains in place. Reportedly patient could not remove this. This slightly limits examination. There is no fracture. There is mild soft tissue swelling of the remaining ring finger. 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 Additional less prominent [id number] osteoarthritis involves most of the interphalangeal joints most evident in the 4th and 5th DIP joints. XR/XR hand LT min 3V IMPRESSION: 1. Soft tissue swelling of the ring finger. No fracture. 2. Osteoarthritis involving multiple joints of the hand as above most prominent and severe involving the 1st carpometacarpal joint and 3rd DIP joint Electronically signed by: John Casey MD 07/06/2024 07:08 AM EDT
[2024-06-08 16:50] LABS: MANUAL DIFF FLAG NO
[2024-06-08 17:02] LABS: Basophils Percent Auto 0.5 % (0-2); Eosinophils Absolute Auto 0.1 X10*3/uL (0.0-0.4); Eosinophils Percent Auto 1.4 % (0-4); Hematocrit 41.8 % (37.0-47.0); Hemoglobin 14.2 g/dl (12.0-16.0); Imm Gran Abs Auto 0.03 X10*3/uL (0.00-0.03); Imm Gran Pct Auto 0.4 % (0.0-0.4); Lymphocytes Absolute Auto 1.8 X10*3/uL (1.2-4.9); Lymphocytes Percent Auto 21.7 % (20-40); Mean Corpuscular Hemoglobin 29.8 pg (27.0-33.0); Mean Corpuscular Volume 87.8 fL (80.0-98.0); Mean Platelet Volume 9.7 fL (9.4-12.3); Monocytes Absolute Auto 1.2 X10*3/uL (0.1-1.2); Monocytes Percent Auto 14.7 % (2-11); Neutrophils Absolute Auto 5.2 x10*3/uL (2.0-8.3); Neutrophils Percent Auto 61.3 % (45-73); Platelet Count 244 X10*3/uL (160-400); Red Blood Count 4.76 X10*6/uL (4.20-5.50); Red Cell Distribution Width 12.9 % (11.0-16.0); White Blood Count 8.4 X10*3/uL (4.8-10.8)
[2024-06-08 17:09] LABS: Appearance Urine Clear; Color Urine Dark Yellow; Glucose Urine UA Negative (Negative); Leukocyte Esterase Urine Negative (Negative); Nitrite Urine Negative (Negative); Specific Gravity - Urine 1.025 (1.005-1.025); Urine Blood Negative (Negative); Urine Ketones Trace mg/dL (Negative); Urine Protein Negative (Neg-Trace)
[2024-06-08 17:29] LABS: C Reactive Protein 7.72 mg/dL (< or = 0.50)
[2024-06-08 17:43] LABS: Free T4 (Free Thyroxine) 0.98 ng/dL (0.71-1.85); Thyroid Stimulating Hormone 0.67 uIU/mL (0.32-4.0)
== END 2024-06-08 16:21 | disposition home or self-care (01) ==
LOC: HO.LAB 16:20
PROVIDERS: PCP Internal Medicine; Visit Provider Internal Medicine
DX: S60.922A Unspecified superficial injury of left hand, initial encounter (principal); R10.9 Unspecified abdominal pain; E03.9 Hypothyroidism, unspecified
CPT/HCPCS: 36415; 73130; 81003; 82550; 84439; 84443; 85025; 86140; 87086

== ENCOUNTER 2024-08-07 14:08 | Outpatient (REF) | payer MEDICARE, SELFPAY ==
--- NOTE | ~2024-08-07 | XR_ITS ---
EXAMINATION: XR HIP, RIGHT CLINICAL INFORMATION: Right hip pain for a month COMPARISON: None available. TECHNIQUE: Two views of the right hip. FINDINGS: Moderate osteoarthritis with joint space narrowing, sclerosis, and marginal osteophytes. No fracture or malalignment. No suspicious bone lesion or soft tissue calcification XR/XR hip RT min 2V IMPRESSION: Moderate right hip osteoarthritis. Electronically signed by: Arsalan Esparza MD 08/08/2024 08:20 AM [facility]
== END 2024-08-07 14:09 | disposition home or self-care (01) ==
LOC: HO.XRAY 14:08
PROVIDERS: PCP Internal Medicine; Visit Provider Internal Medicine
DX: M25.551 Pain in right hip (principal)
CPT/HCPCS: 73502

== ENCOUNTER 2024-09-22 10:48 | Outpatient (AMB) | payer MEDICARE, SELFPAY ==
--- NOTE | 2024-09-22 10:51 | MHC.OFFVIS ---
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 Patient reports ongoing pain for a couple months. She mentions that her pain is near the glutes and it radiates to her lower back at times. Patient states that her pain is worse when she is going up the stair or walking on a incline. She has tried taking ibuprofen with relief. 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 The patient was seen by Dr. Clyde Luna on 08/07/2024 with the complaint of right hip pain ongoing for several years and has been getting worse lately. She describes her pain as intermittent and comes and goes. She denied any injury in the right hip. She has been experiencing pain with weight bearing and when ambulating the stairs. She does hiking. X-rays of the right hip were obtained. While in the office today, the patient reports experiencing right hip pain, ongoing for a couple months. She specifies her pain is near the glute and radiates to her lower back occasionally. Pain aggravates when she ambulates up the stair or when ambulating on an incline. She has tried OTC ibuprofen with relief. [facility]LY [facility] Medical History Thyroid cancer Social History (Updated 09/22/24 @ 11:04 by Emmie Beltre) Alcohol intake: current Alcohol intake frequency: holidays/special occasions only Patient Tobacco Use Status: Never used Tobacco Current occupational status: retired Review of Systems Const All systems reviewed & are unremarkable except as noted in HPI and below Physical Exam Const General: cooperative and no acute distress Orientation/consciousness: patient oriented x3 Resp Effort & Inspection: normal respiratory effort and able to speak in complete sentences Cardio Peripheral pulses: Peripheral pulses 2+ throughout Skin General skin exam: no rashes or lesions noted Neuro General: patient oriented x3 Extrem Other: Right hip: Normal to inspection. No ecchymosis, erythema, or edema. Full hip ROM in all planes. No tenderness to palpation over the greater trochanteric bursa. 4/5 strength with resisted hip flexion, knee extension, abduction, and abduction. Denies any groin pain with internal or external rotation and is able to demonstrate good motion. Able to perform straight leg raise. NVI. Assessment & Plan Assessment & Plan (1) Lower back pain: Code(s): M54.50 - Low back pain, unspecified Category: Medical Plan Ms. Jones is an 79-year-old female who presents in the office today, as a new patient, for an evaluation of right hip pain. The patient was seen by Dr. Clyde Luna on 08/07/2024 with the complaint of right hip pain ongoing for several years and has been getting worse lately. She describes her pain as intermittent and comes and goes. She denied any injury in the right hip. She has been experiencing pain with weight bearing and when ambulating the stairs. She does hiking. X-rays of the right hip were obtained. While in the office today, the patient reports experiencing right hip pain, ongoing for a couple months. She specifies her pain is near the glute and radiates to her lower back occasionally. Pain aggravates when she ambulates up the stair or when ambulating on an incline. She has tried OTC ibuprofen with relief. The patient denies any groin pain with internal or external rotation. She reports the majority of the pain is located along her lower back in the right buttock. She denies any numbness or tingling; however, she reports occasionally experiencing a cold water sensation radiating down her right lower extremity from time to time. I have sent a prescription of Celebrex 200 mg PO BID to the pharmacy to assist with her inflammation. She should not take the ibu profen or any additional antiinflammatories while taking the Celebrex. I have also placed a referral to Dr. Pantoja for further evaluation and treatment of her lower back. Her x-rays of the right hip revealed osteoarthritis; however, her symptoms are more consistent with lower back pain. Follow-up will be with Dr. Pantoja for further evaluation. Follow-up will be PRN with Orthopedics, or sooner if needed. X-rays of the right hip, obtained on 08/08/24, revealed: Moderate right hip osteoarthritis. Medications: New celecoxib (Celebrex) 200 mg PO BID 60 caps 0RF 30 days Patient Instructions: Scribed by Anahi Abad, medical office secretary, for Kailey Soliz PA-C on 09/22/24 at 11:09 am EST. Coding Level of Care Code New Pt Level 4 (24520) Diagnoses Lower back pain M54.50
== END 2024-09-22 11:21 | disposition home or self-care (01) ==
PROVIDERS: PCP Internal Medicine; Visit Provider Physician Assistant
DX: M54.50 Low back pain, unspecified (principal)
CPT/HCPCS: 99204

== ENCOUNTER → 2024-09-22 10:48 | Outpatient (BNVA) | payer MEDICARE, SELFPAY | PROVIDERS: PCP Internal Medicine; Visit Provider Physician Assistant | DX: M54.50 Low back pain, unspecified (principal); M25.551 Pain in right hip | CPT/HCPCS: 99202 ==

== ENCOUNTER 2024-11-23 11:24 | Outpatient (AMB) | payer MEDICARE, SELFPAY ==
--- NOTE | 2024-11-23 11:30 | MHC.OFFVIS ---
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 Previously seen with Kelsie Bonner. States right hip pain ongoing for several years and has been getting worse and now is getting better. She describes her pain as intermittent and comes and goes. States pain is worse with weight bearing and when ambulating the stairs. Patient specifies her pain is near the glute and radiates to her lower back occasionally. She has tried OTC ibuprofen with relief. Kailey prescribed celebrex but it would cost patient $300 to obtain. Patient refused celebrex at pharmacy. Denies injury or falls, no numbness or tingling in toes and no P.T in the past. Allergies No Known Allergies [No Known Allergies*] Allergy (Verified 11/23/24 11:34) HPI Comments Details: Difficulty gettting up from seated position. Points on right buttocks/ischial area as source of pain and also points to left SI joint. No groin pain. Does not radiate to legs or feet. Denies numbness. Cramping on both feet, especially when laces are tied too tight and toes move side to side . Possible restless feet at night. Non diabetic. No past back injuries. History of cervical spinal stenosis, MRI 2021. Numbness on hands especially at night, diagnosed at [facility] in the past but reports that numbness only when she rolls to her side. Takes care of . [facility] Medical History Thyroid cancer Social History Alcohol intake: current Alcohol intake frequency: holidays/special occasions only Patient Tobacco Use Status: Never used Tobacco Current occupational status: retired Review of Systems Const All systems reviewed & are unremarkable except as noted in HPI and below Physical Exam Vital Signs: BMI result Body Mass Index 23.2 Constitutional: Patient appears to be in no acute distress, well nourished and well developed. Patient was appropriately conversant and oriented. Good historian. MSK: No specific abnormalities found on inspection of the spine and all extremities. No pain with palpation over the lumbar area. Tender on SI joints, right worse than left. Tender right greater trochanter. Piriformis done tender. Ischial tuberosity nontender. Lumbar ROM was full. Bilateral hip, knee and ankle ROM WNL. No ligamentous laxity or crepitance. No increased effusion. Straight-leg raising test negative. FABERE test bilateral groin pain but difficulty in range of motion. Strength is 5/5 in all muscle groups tested supine and seated, but showed difficulty getting up from seated position. No increased tone noted. Neurological: Neurologic examination of the upper and lower extremities was nonfocal with intact sensation, muscle stretch reflexes and without focal motor deficits . Sanford?s negative bilaterally. Babinski was down going bilaterally. Clonus was negative. Gait is non-antalgic without loss of balance. Results Reviewed Results Reviewed: Ordering Physician: Clyde Luna MD Date of Service: 08/07/24 Procedure(s): XR hip RT min 2V Accession Number(s): [id number] cc: Clyde Luna MD~ EXAMINATION: XR HIP, RIGHT CLINICAL INFORMATION: Right hip pain for a month COMPARISON: None available. TECHNIQUE: Two views of the right hip. FINDINGS: Moderate osteoarthritis with joint space narrowing, sclerosis, and marginal osteophytes. No fracture or malalignment. No suspicious bone lesion or soft tissue calcification XR/XR hip RT min 2V IMPRESSION: Moderate right hip osteoarthritis. Electronically signed by: Arsalan Esparza MD 08/08/2024 08:20 AM [facility] I reviewed records from the following: Ortho Assessment & Plan Assessment & Plan (1) Degenerative joint disease of both hips: Code(s): M16.0 - Bilateral primary osteoarthritis of hip Category: Medical (2) Sacroiliac joint dysfunction of both sides: Code(s): M53.3 - Sacrococcygeal disorders, not elsewhere classified Category: Medical (3) Lower back pain: Code(s): M54.50 - Low back pain, unspecified Category: Medical Qualifiers: Chronicity: unspecified Back pain laterality: bilateral Sciatica presence: without sciatica Qualified Code(s): M54.50 - Low back pain, unspecified Plan I think most of her symptoms pertaining to bilateral hip degenerative changes/osteoarthritis. She was also signs of SI joint dysfunction. We talked about treatment options and we agreed on referring her to physical therapy. Instructions to PT to work on SI joint, hip joint and lower back, and to strengthen quadriceps and hamstrings. We will also get lumbar x-ray/visualize SI joint and left hip x-ray today. Assessment and plan discussed with patient, and patient was agreeable. All questions were answered thoroughly. Follow up 3 months. Inna Coronel MD, SEAN Board Certified, [place] [employer] and [employer] (ABPMR) Board Certified, [place] [employer] (ABEM) Orders: Orders XR lumbar spine 2-3V Today M54.9 - Dorsalgia, unspecified XR hip LT min 2V Today M16.12 - Unilateral primary osteoarthritis, left hip PT Evaluation and Treatment Today M16.0 - Bilateral primary osteoarthritis of hip, M53.3 - Sacrococcygeal disorders, not elsewhere classified, M54.50 - Low back pain, unspecified Coding Level of Care Code New Pt Level 4 (43447) Diagnoses Degenerative joint disease of both hips M16.0 Sacroiliac joint dysfunction of both sides M53.3 Bilateral low back pain without sciatica, unspecified chronicity M54.50 Chronicity: unspecified Back pain laterality: bilateral Sciatica presence: without sciatica
[2024-11-23 11:36] VITALS: BMI 23.2
--- OUTSIDE RECORDS SUMMARY | 2024-11-23 13:49 | XMS_ITS | Data Portability ---
Author Organization [place] - [facility] Address [address] [place] [id number] Care Team Providers Care Photocopy Operator Name Role Phone NIKUNJ RAMOS Primary Care Provider Assessment Encounter Date Assessment Date Assessment LastModified by Organization Details LastModified Time 09/07/2020 09/07/2020 Overview/Histor y: 75 y/o F with PMHx sig for hypothyroidism, thyroid CA, and GIST, new to , who presents for COVID test after exposure 1 weeks ago to visiting nurse who tested positive. Patient reports some muscle aches but otherwise feels in her usual state of health. Patient's 's balancing machine set up worker told her that would come do a COVID test. Patient was unaware that is an urgent care and does not want an evaluation. Exam: afebrile, RRR, normotensive, normal resps, O2 sat 98% on RA, non-toxic, well appearing. GENERAL: well developed, well nourished, appears stated age, sitting comfortably in no acute distress. HEENT: normocephalic, atraumatic, PERRL, EOMI, sclera anicteric, no conjunctival injection, nares patent, mmm. RESP: normal I:E, clear to auscultation bilaterally, no wheezes, rhonchi, or rales. CARDIO: RRR, normal S1, S2, no murmurs, rubs, or gallops, radial pulse 2+. NEURO: awake, alert, oriented x3, no focal neuro deficits, moving all extremities spontaneously, normal gait SKIN: intact, good turgor, no cyanosis, pallor, ecchymosis, rash, lesions, abrasions, or lacerations. PSYCH: pleasant, appropriate mood and affect. DDx considered, but not limited to: none, COVID test only. Work up/Results: COVID test pending. Plan/Discussion : We will call with COVID test result in 3-5 days. Continue to monitor for symptoms. Quarantine for at least 10 days since exposure. Continue to wear mask, social distance, and wash hands often. Call for new or worsening sxs. [email or web address] Not available 09/07/2020 16:21:39 Plan of Treatment Reminders Order Date Submit Date Provider Last Modified By Organization Details Last Modified Time Details Appointments None recorded. Lab SARS CoV 2 RNA (COVID-19), QL, privacy officer-PCR, respiratory specimen 2019 020 [id number] [facility] (Centralized Electronic Ordering - All Locations), Patient Can Go To The Location Of Their Choice, [id number] 0 19:23:19 Referral None recorded. Procedures None recorded. Surgeries None recorded. Imaging None recorded. Medication Orders None recorded. Patient TargetsNo targets recorded. Patient InstructionsNo instructions recorded. Reason for Referral None Reported. Results Created Date Observation Date Name Description Value Unit Range Abnormal Flag Note LastModifiedBy Organization Detail LastModifiedTime 09/07/20 20 09/11/2020 SARS CoV 2 RNA, QL probe , unspe cifie d speci men covid-19, (RT)-PCR (notde ) Not detec jessie 2019- novel Coron aviru s (2018nCoV ) not detec jessie by the qRT-P CR assay . If clini corky suspi cion for COVID -19 is high, vianey nue to maint ain preca ution s and consi smith repea t testi ng. Resul t repor jessie to [facility]. This test has been autho rized by the FDA under an Emerg ency Use Autho rizat ion (EUA) for use by autho rized labor atori es. Test perfo rmed by [facility] at the [facility] and Billy pollard, [address] [address] . CLIA ID: [id number] , CAP: [id number]. Medic al Direc tor: Yari Kelley, PhD FAC (NOTE ) The CRSP SARS- CoV-2 Real- time Rever se Trans cript ase (RT)- PCR Diagn ostic Assay is a real- time RT-PC R test inten ded for the quali tativ e detec tion of nucle ic acid from the SARS- CoV-2 in nasop haryn geal and oroph aryng eal swabs colle cted from indiv idual s who may have contr acted the virus . Testi ng is limit ed to the Clini cor[facility] Se[facility] ncing Plat[facility] orm at the [facility] which is certi fied under the Clini corky Labor atory Impro vemen t Amend ments of 1987 (CLIA ), 42 U.S.C . ?263a , to perfo rm high compl exity tests . = Posit daniella resul ts are indic ative of activ e infec tion with SARS- CoV-2 but do not rule out bacte rial infec tion or co-in fecti on with other virus es. The agent detec jessie may not be the defin ite cause of disea se. In addit ion, nucle ic acid detec tion can persi st follo wing clear ance of activ e viral repli catio n. Labor atori es withi n the [place]ite [place] State s and its eliud debi s are requi red to repor t all posit daniella resul ts to the appro priat e publi c healt h autho ritie s. = Negat daniella resul ts do not precl ude SARS- CoV-2 infec tion and shoul d not be used as the sole basis for patie nt treat ment or other patie nt manag ement decis ions. Negat daniella resul ts must be combi fabby with clini corky obser vatio ns, patie nt histo ry, and epide miolo gical infor matio n. Not Available [facility] (Centralized Electronic Ordering - All Locations) Patient Can Go To The Location Of Their Choice, [id number] 09/11/2020 12:38:56 Result Notes None recorded. Problems Name Problem SNOMED Code Status Onset Date Resolution Date Notes Provider Name and Address Organization Details Recorded Time Hypothyroidis m [id number] Active 2019 JONAS JEAN [address], [place], [id number], [place] [facility] 0 15:46:06 Problem Notes None recorded. Medical Equipment None Reported. Allergies No known drug allergies Medications Name Sig Start Date Stop Date Status Note LastModified by Organization Details LastModified Time doxycycline hyclate 100 mg capsule TAKE 1 CAPSULE BY MOUTH TWICE A DAY 09/07 completed Not Available Not Available Not Available levothyroxi ne 75 mcg tablet TAKE 1 TABLET BY MOUTH EVERY DAY active Not Available Not Available No t Available Fluzone High-Dose Quad (PF) 240 mcg/0.7 mL IM syringe PHARMACY ADMINISTE RED active Not Available Not Available No t Available Vitals Date Recorded Respiratory rate Heart rate Oxygen saturation Oxygen saturation in Arterial blood by Pulse oximetry Body temperature Systolic blood pressure Diastolic blood pressure Provider Name and Address Organization Details Last Updated DateTime 0 20 /min 76 /min 98 % 98 % 98.2 [degF] 126 mm[Hg] 68 mm[Hg] Not Available [facility] 0 15:41:28 Social History Question Answer Notes LastModified by Organizat ion Details LastModified Time Tobacco Smoking Status Never Smoker JONAS JEAN [address], [place], [address], [place] [facility] 09/07/2020 15:47:38 Do You Have An Advance Directive? Yes [email or web address] Information not available 09/07/2020 What Is Your Code Status? DNR [email or web address] Information not available 09/07/2020 Within The Past 12 Months, Has It Happened That The Food You Bought Just Didn't Last And You Didn't Have Money To Get More. No [email or web address] Information not available 09/07/2020 Within The Past 12 Months, Have You Worried That Your Food Would Run Out Before You Got Money To Buy More. No [email or web address] Information not available 09/07/2020 Fall Risk: Do You Feel Unsteady When Standing Or Walking? No [email or web address] Information not available 09/07/2020 We Know That How And When People Interact With Friends And Family Can Be Very Different From Person To Person. How Often Do You Have The Opportunity To See Or Talk To People That You Care About And Feel Close To? (Ex: Talking To Friends On The Phone Or Visiting Friends Or Family Or Going To Anglican Or Club Meetings) 5 Or More Times Per Week [email or web address] Information not available 09/07/2020 Excessive Alcohol Or Drug Use No [email or web address] Information not available 09/07/2020 We Know From Many Of Our Patients That Covering All Of Their Costs Can Be Difficult At Times. This Can Cause Stress And Impact Health. In The Past Year, Have You Been Unable To Get Any Of The Following When It Was Really Needed? No [email or web address] Information not available 09/07/2020 What Is Your Housing Situation Today? I Have Housing [email or web address] Information not available 09/07/2020 Would You Like Help Connecting To Resources? None [email or web address] Information not available 09/07/2020 Sex: Unknown Functional Status None recorded. Mental Status None recorded. Family History Relationship Description Onset Age of this Age Resolved Age Notes LastModified by Organization Details LastModified Time Mother Malignant neoplastic disease colon [email or web address] [employer] Not available 2019 15:48:25 Medical History Condition Response Diabetes N Coronary Artery Disease N Cancer Y Stroke N Asthma N COPD N Depression N High Cholesterol N Pulmonary Embolism N Hypertension N Kidney Disease N Gynecological HistoryNo gynecological history recorded. Obstetrics History GPAL:G 0 P 0 0 0 0 Past Encounters Encounter ID Performer Location Encounter Start Date Encounter Closed Date Diagnosis/Indication Diagnosis SNOMED-CT Code Diagnosis ICD10 Code Diagnosis Note [id number] JONAS JEAN [facility] [address] [place] [address] 09/07/2020 15:33:25 09/08/2020 20:10:52 Exposure to communicable disease 605534721 Z20.828 Health Concerns Section Related Observation LastModified by Organization Detai ls LastModified Time None Recorded Concern Status LastModified by Organization Details LastModified Time None Recorded Advance Directives Directive Y: Payers Encounter Date Sequence Insurance Name Policy Number Policy Luna Covered Member ID Luna Member ID Guarantor Name 09/07/2020 1 [place] [employer] Yolanda Jones [id number] Yolanda Jones 09/07/2020 2 [place] [id number] Yolanda Jones [id number] Yolanda Jones Notes Date Note Type Note Provider Name and Address Organization Details Recorded Time 09/07/2020 text/html 75 y/o F with PMHx sig for hypothyroidism, thyroid CA, and GIST, new to , who presents for COVID test after exposure 1 weeks ago to visiting nurse who tested positive. Patient reports some muscle aches but otherwise feels in her usual state of health. Patient's 's balancing machine set up worker told her that [facility] would come do a COVID test. Patient was unaware that [facility] is an urgent care and does not want an evaluation. JONAS JEAN [address] [place], [address], [place] [facility] 09/07/2020 16:21:54 OBGyn Episode No OBEpisode recorded.
== END 2024-11-23 12:28 | disposition home or self-care (01) ==
PROVIDERS: PCP Internal Medicine; Visit Provider Physical Medicine & Rehabilitation
DX: M16.0 Bilateral primary osteoarthritis of hip (principal); M53.3 Sacrococcygeal disorders, not elsewhere classified; M54.50 Low back pain, unspecified
CPT/HCPCS: 99203

== ENCOUNTER 2024-11-23 11:24 | Outpatient (REF) | payer MEDICARE, SELFPAY ==
--- NOTE | ~2024-11-23 | XR_ITS ---
CLINICAL HISTORY: M16.12 - Unilateral primary osteoarthritis, left hip 2 view, pelvis and left hip Comparison: None Findings: The bones are intact. No significant arthritic change. The soft tissues are unremarkable. IMPRESSION: No acute findings. This document has been electronically signed by: Madhu Matson MD on 11/23/2024 19:23:29
--- NOTE | ~2024-11-23 | XR_ITS ---
CLINICAL HISTORY: M54.9 - Dorsalgia, unspecified 3 views lumbar spine Comparison: None Findings: There is 5.1 mm anterior displacement of L4 on L5. There is scoliotic curvature. No acute fractures or dislocation. There is multiple level degenerative disc and facet change. There is aortic calcification. IMPRESSION: No acute findings. This document has been electronically signed by: Madhu Matson MD on 11/23/2024 19:23:21
== END 2024-11-23 11:25 | disposition home or self-care (01) ==
LOC: HO.HOSX 11:24
PROVIDERS: PCP Internal Medicine; Visit Provider Physical Medicine & Rehabilitation
DX: M16.12 Unilateral primary osteoarthritis, left hip (principal); M54.50 Low back pain, unspecified
CPT/HCPCS: 72100; 73502; 99202

== ENCOUNTER → 2024-11-23 11:53 | Outpatient (BNV) | payer MEDICARE, SELFPAY | PROVIDERS: PCP Internal Medicine; Visit Provider Specialist | DX: M16.12 Unilateral primary osteoarthritis, left hip (principal); M54.9 Dorsalgia, unspecified | CPT/HCPCS: 72100; 73502 ==

== ENCOUNTER 2024-12-08 08:04 | Emergency (ER) | payer MEDICARE, SELFPAY ==
--- NOTE | ~2024-12-08 | CT_ITS ---
EXAMINATION: CT ABDOMEN PELVIS WITH IV CONTRAST HISTORY: severe LLQ pain COMPARISON: There are no prior studies for comparison. TECHNIQUE: CT scan of the abdomen and pelvis was performed following administration of 85 mL Omnipaque 350 using standard departmental protocol. Coronal and sagittal reformatted images were generated and reviewed. Oral contrast material was not administered at the request of the referring physician. This CT exam was performed with one or more of the following dose reduction techniques: automated exposure control, adjustment of the mA and/or kV according to patient size, use of iterative reconstruction technique. DLP: 473 mGy-cm FINDINGS: LOWER CHEST: The visualized lung bases are clear. There is no pleural effusion. CARDIOVASCULATURE: The heart is normal in size. There is no pericardial effusion. LIVER: The liver is normal in size and contour. No liver mass is identified. The hepatic and portal veins are patent. GALLBLADDER / BILE DUCTS: The gallbladder is unremarkable. There is no intra or extrahepatic biliary ductal dilatation. SPLEEN: The spleen is normal in size. No focal splenic lesion is identified. PANCREAS: The pancreas is unremarkable in appearance. ADRENAL GLANDS: Within normal limits. KIDNEYS/RETROPERITONEUM: No renal calculi are identified. There is no hydronephrosis. There are parapelvic cysts at the lower poles of both kidneys. LYMPH NODES: No abdominal or pelvic lymphadenopathy. VASCULATURE: The abdominal aorta demonstrates atherosclerotic calcification, but is normal in caliber. MESENTERY/PERITONEUM: No free fluid. No masses. There is no free intraperitoneal gas. STOMACH: The stomach is unremarkable. SMALL BOWEL: The small bowel is normal in caliber. COLON: There is diverticulosis of the descending and sigmoid colon. There is mild wall thickening and pericolonic inflammatory stranding about the sigmoid colon, consistent with diverticulitis. There is no adjacent extraluminal gas or loculated fluid collection. APPENDIX: The appendix is not seen, however no inflammatory changes are seen adjacent to the cecum. URINARY BLADDER/PELVIC ORGANS: The urinary bladder is unremarkable. There is a probable 1.1 cm posterior uterine fibroid. BONES / SOFT TISSUES: There is slight spondylolisthesis of L4 on L5. CT/CT abdomen pelvis w IV con IMPRESSION: Findings consistent with diverticulitis of the sigmoid colon as described. Electronically signed by: Yifan Fagan MD 12/08/2024 09:38 AM EDT RP
[2024-12-08 08:14] VITALS: BP 138/72; BP 143/60; PULSE 60; PULSE 61; RESP 18; TEMP 36.4; O2SAT 100; O2SAT 99; BMI 23.8
--- NOTE | 2024-12-08 08:22 | ECG_ITS ---
Test Reason : diziness Blood Pressure : */* mmHG Vent. Rate : 60 BPM Atrial Rate : 60 BPM P-R Int : 138 ms QRS Dur : 68 ms QT Int : 442 ms P-R-T Axes : 34 16 26 degrees QTcB Int : 442 ms Sinus rhythm with occasional Premature ventricular complexes Low voltage QRS Borderline ECG When compared with ECG of 24-Apr-2010 14:02, No significant changes seen Referred By: Maki Marino Electronically Signed By: KANE CHI
--- NOTE | 2024-12-08 08:32 | ED.GENADULT ---
HPI - General Adult General Chief complaint: General Medical Stated complaint: NERVOUSNESS, ANXIETY PER EMS Time Seen by Provider: 12/08/24 08:11 Source: patient and EMS Mode of arrival: EMS Limitations: no limitations History of Present Illness ED Provider: Tatiana Marino PA-C HPI narrative: 79 yo female with history of osteoarthritis, HLD, diverticulitis who presents to the ER from home via EMS for evaluation of lower abdominal pain and an anxiety attack. She reports she gets frequent lower abdominal pains due to diverticulitis and today the pain woke up out of sleep at 4am. It was sharp and nonradiating. She had a normal BM and pain subsideded. She reports shortly after she started developing increased anxiety and started having heavy, rapid breathing. She was then dizzy and having chills. She called 911 in a panic. She denies associated chest pain, vomiting, diarrhea, focal weakness, headaches. no fevers, no rashes, no urinary symptoms. MD complaint: lower abdominal pain, anxiety Onset (ago): hour(s) Location: abdomen Radiation: non-radiation Severity: severe Quality: sharp Pain Consistency: intermittent Relieving factors: none Exacerbating factors: none Associated symptoms: fever/chills, shortness of breath and other (anxiety ) Treatments prior to arrival: none Related Data Home Medications ?Medication ?Instructions ?Recorded ?Confirmed ibuprofen 600 mg tablet 600 mg PO TID 09/22/24 levothyroxine 75 mcg tablet 75 mcg PO DAILY 09/22/24 Previous Rx's ?Medication ?Instructions ?Recorded amoxicillin 875 mg-potassium 1 tab PO BID #14 tabs 12/08/24 clavulanate 125 mg tablet ibuprofen 600 mg tablet 600 mg PO Q8H PRN fever or pain #7 12/08/24 tabs oxycodone 5 mg tablet 5 mg PO BID PRN severe pain (scale 12/08/24 score 7-10) #4 tabs Allergies Allergy/AdvReac Type Severity Reaction Status Date / Time No Known Allergies Allergy Verified 12/08/24 08:16 [No Known Allergies*] Review of Systems Review of Systems: Yes all other systems are reviewed and are negative [facility] Past Medical History Medical History Thyroid cancer Social History Social History (Reviewed 11/23/24 @ 11:35 by OMERO Saldana Alcohol intake: current Alcohol intake frequency: holidays/special occasions only Patient Tobacco Use Status: Never used Tobacco Smoked in Last 30 Days: No Use of substances other than those prescribed or required for medical reasons: No Advance Directives: No Advance Directives Information Provided: Yes Current occupational status: retired Physical Exam ED Vital Signs: Vital Signs - 24 hr 12/08/24 08:14 12/08/24 10:00 Temperature 97.6 F 97.9 F Pulse Rate 61 61 Respiratory Rate 18 16 Blood Pressure 143/60 H 143/62 H Pulse Oximetry 100 99 Oxygen Delivery Method Room Air Room Air BMI result Body Mass Index 23.8 Appearance: Alert elderly female, laying in the stretcher rapidly breathing with eyes closed. Oriented X3. Head: normocephalic, atraumatic. Eyes: Pupils equal, round and reactive to light. ENT: Pharynx normal. No tonsillar swelling or exudate. Neck: Normal inspection. Neck supple. CVS: Normal heart rate and rhythm. Pulses normal. Respiratory: No respiratory distress. Breath sounds normal. Abdomen: Soft with lower abdominal tenderness, L>R with guarding, no rebound, decreased but present +BS x4 Skin: Skin warm and dry. Normal skin color. Normal skin turgor. No rashes. Extremities: No lower extremity edema. No joint swelling. Neuro/psych: Oriented X 3. No motor deficit. No sensory deficit. CN II-XII intact. Normal speech and cognition. Medications Administered Discontinued Medications Generic Name Dose Route Start Last Admin Trade Name Freq PRN Reason Stop Dose Admin Hydroxyzine HCl 25 mg 12/08/24 08:22 12/08/24 08:41 Hydroxyzine Hcl 25 Mg Tablet PO 12/08/24 08:23 25 mg ONCE ONE Administration Lactated Ringer's 1,000 mls @ 999 mls/hr 12/08/24 08:30 12/08/24 10:52 Lr IV 12/08/24 09:30 Infused .Q1H1M LUZ Infusion Iohexol 85 ml 12/08/24 09:19 12/08/24 09:19 Iohexol 350 Mg/Ml 100 Ml Infus..Btl IV 12/08/24 09:20 85 ml ONCE ONE Administration Morphine Sulfate 2 mg 12/08/24 08:22 12/08/24 08:34 Morphine Sulfate 2 Mg/Ml Cartridge IVPUSH 12/08/24 08:23 2 mg ONCE ONE Administration Protocol Ondansetron HCl 4 mg 12/08/24 08:22 12/08/24 08:33 Ondansetron Hcl 4 Mg/2 Ml Vial IVPUSH 12/08/24 08:23 4 mg ONCE ONE Administration Medical Decision Making Medical Decision Making [facility] Narrative: 79 yo female presenting to the ER for evaluation of lower abdominal pain and anxiety. pain started at 4am and has been waxing and waning. exam w/ L>R lower abdominal tenderness. not an acute abdomen. IV established and she was given IV morphine, zofran and hydroxyzine. labs are reassuring. feeling much better on re-evaluation CT scan is showing acute diverticulitis of the sigmoid colon. no abscess. given her improvement and reassuring workup, comfortable with discharge home with abx and pain control all questions answered, pt agrees w/ plan and return precautions discussed Differential Diagnosis Differential Diagnoses: The differential diagnosis associated with the presentation includes acute anxiety, acute diverticulitis, appendicitis, UTI, constipation, kidney stone Admission/Observation Consideration of admission/observation: Escalation of care including admission/observation considered Lab Data [facility] Lab Attestation statement: I reviewed the patient's lab results. no leukocytosis, mild elevation of BUN 12/08/24 08:30 12/08/24 08:30 Labs: Lab Results 12/08/24 12/08/24 Range/Units 08:30 11:01 WBC 6.8 (4.8-10.8) X10*3/uL RBC 4.62 (4.20-5.50) X10*6/uL Hgb 13.9 (12.0-16.0) g/dl Hct 41.1 (37.0-47.0) % MCV 89.0 (80.0-98.0) fL MCH 30.1 (27.0-33.0) pg MCHC 33.8 (31.0-35.0) g/dl RDW 13.1 (11.0-16.0) % Plt Count 264 (160-400) X10*3/uL MPV 9.8 (9.4-12.3) fL Immature Gran % (Auto) 0.4 (0.0-0.4) % Neut % (Auto) 48.7 (45-73) % Lymph % (Auto) 32.5 (20-40) % [place] % (Auto) 15.5 H (2-11) % Eos % (Auto) 2.3 (0-4) % Baso % (Auto) 0.6 (0-2) % Lymph # (Auto) 2.2 (1.2-4.9) X10*3/uL [place] # (Auto) 1.1 (0.1-1.2) X10*3/uL Eos # (Auto) 0.2 (0.0-0.4) X10*3/uL Baso # (Auto) 0.0 (0.0-0.2) X10*3/uL Abs Immat Gran (auto) 0.03 (0.00-0.03) X10*3/uL Absolute Neuts (auto) 3.3 (2.0-8.3) x10*3/uL Absolute Nucleated RBC 0.000 (0.0-0.012) X10*3/uL Nucleated RBC % (auto) 0.0 (0.0-0.2) /100WBC Sodium 140 (135-145) mmol/L Potassium 4.1 (3.3-5.1) mmol/L Chloride 108 (96-108) mmol/L Carbon Dioxide 20 L (22-29) mmol/L Anion Gap 16 (12-20) BUN 17 H (9-16) mg/dL Creatinine 0.89 (0.5-1.4) mg/dL Estim Creat Clear Calc 39.2 Estimated GFR > 60 Random Glucose 108 (60-115) mg/dL Calcium 9.0 (8.4-10.2) mg/dL Magnesium 2.0 (1.6-2.6) mg/dL Total Bilirubin 1.0 (0.0-1.0) mg/dL Direct Bilirubin 0.3 (0.0-0.5) mg/dL AST 20 (5-31) U/L ALT 16 (0-31) U/L Alkaline Phosphatase 81 (39-117) U/L Troponin I High Sens < 2.7 (<3.5-17.0) ng/L C-Reactive Protein 7.06 H (< or = 0.50) mg/dL Total Protein 7.2 (6.5-8.0) g/dL Albumin 4.0 (3.5-5.0) g/dL Lipase 32 (8-78) U/L TSH 1.71 (0.32-4.0) uIU/mL Urine Color Yellow Urine Appearance Clear Urine pH 8.5 (5.0-9.0) Ur Specific [place] >= 1.030 H (1.005-1.025) Urine Protein Trace (Neg-Trace) mg/dL Urine Glucose (UA) Negative (Negative) mg/dL Urine Ketones 15 (Negative) mg/dL Urine Blood Negative (Negative) Urine Nitrite Negative (Negative) Ur Leukocyte Esterase Negative (Negative) Independent Interpretation I performed an independent interpretation of an: EKG and CT Scan Interpretation: ekg with normal sinus rhythm, HR 60 bpm, occasional PVCs, no ST segment elevation or depression CT with left sided colonic stranding c/w diverticulitis Radiology Impression Discussion of test interpretation with radiology: I have reviewed the radiologist's reading. External Record Review External record reviewed: Outpatient record, Prior outpatient labs and Prior outpatient radiology Prescription Management I considered prescription management with: Pain Medication and Antibiotic Chronic Conditions Patient?s care impacted by: Other (diverticulitis ) Critical Care Time Critical Care Time Critical Care Time: No Discharge Plan Discharge Clinical Impression: Diverticulitis Patient Disposition: Home, Self-Care Instructions: Diverticulitis (ED), Diverticulitis Diet (ED) Additional Instructions: Your CT scan today showed diverticulitis. Take the prescribed antibiotics as directed, complete the entire course and do not miss any doses Take the prescribed ibuprofen as needed for moderate pain - NSAIDs work well in diverticulitis Take the prescribed oxycodone as needed for severe pain only - do not drive after taking this medication Rest and drink plenty of fluids. Recommend clear liquid diet for the next 48 hours and slowly advance as tolerated Follow up with your doctor as well as GI specialist - name and number below, call for an appointment Prescriptions: New amoxicillin-pot clavulanate 875-125 mg tablet 1 tab PO BID Qty: 14 0RF ibuprofen 600 mg tablet 600 mg PO Q8H PRN (Reason: fever or pain) Qty: 7 0RF oxycodone 5 mg tablet 5 mg PO BID PRN (Reason: severe pain (scale score 7-10)) Qty: 4 0RF Rx Instructions: Partial Fill upon patient request. No Action levothyroxine 75 mcg tablet 75 mcg PO DAILY ibuprofen 600 mg tablet 600 mg PO TID Referrals: [facility] [Provider Group] (recurrent diverticulitis) Cldye Luna MD [Primary Care Provider] - Print Language: Setswana
[2024-12-08] MEDS: ondansetron HCL 4 MG/2 ML VIAL IVPUSH (08:33)
[2024-12-08 08:34] LABS: MANUAL DIFF FLAG NO
[2024-12-08] MEDS: Morphine Sulfate 2 MG/ML CARTRIDGE IVPUSH (08:34)
--- OUTSIDE RECORDS SUMMARY | 2024-12-08 08:38 | XMS_ITS | Data Portability ---
Author Organization [place] - [facility] Address [address] [place] [id number] Care Team Providers Care Sales Project Administrator Name Role Phone NIKUNJ RAMOS Primary Care Provider [phone] Assessment Encounter Date Assessment Date Assessment LastModified by Organization Details LastModified Time 09/07/2020 09/07/2020 Overview/Histor y: 75 y/o F with PMHx sig for hypothyroidism, thyroid CA, and GIST, new to , who presents for COVID test after exposure 1 weeks ago to visiting nurse who tested positive. Patient reports some muscle aches but otherwise feels in her usual state of health. Patient's 's home hospice aide told her that would come do a [...] Lab SARS CoV 2 RNA (COVID-19), QL, application integration engineer-PCR, respiratory specimen 2019 020 [id number] [facility] (Centralized Electronic Ordering - All Locations), Patient Can Go To The Location Of Their Choice, [id number] 0 19:23:19 Referral None recorded. Procedures None [...] testi ng. Resul t repor jessie to [facility]. This test has been autho rized by the FDA under an Emerg ency Use Autho rizat ion (EUA) for use by autho rized labor atori es. Test perfo rmed by [facility] at the [facility] and Billy pollard, [address] [address] . CLIA ID: [id number] , CAP: [id number]. Medic al Direc tor: Yari Kelley, [...] limit ed to the [facility] or[facility] at the [facility] which is certi fied under the Clini [...] Go To The Location Of Their Choice, [id number] 09/11/2020 12:38:56 Result Notes None recorded. Problems Name Problem SNOMED Code Status Onset Date Resolution Date Notes Provider Name and Address Organization Details Recorded Time Hypothyroidis m [id number] Active 2019 JONAS JEAN [address], [place], [address], [place] [facility] 0 15:46:06 Problem [...] Never Smoker JONAS JEAN [address], [place], [address], [place] [facility] 09/07/2020 15:47:38 Do You Have An Advance Directive? Yes [employer] Information not available 09/07/2020 What Is Your Code Status? DNR [employer] Information not available 09/07/2020 Within The Past 12 Months, Has It Happened That The Food You Bought Just Didn't Last And You Didn't Have Money To Get More. No [employer] Information not available 09/07/2020 Within The Past 12 Months, Have You Worried That Your Food Would Run Out Before You Got Money To Buy More. No [employer] Information not available 09/07/2020 Fall Risk: Do You Feel Unsteady When Standing Or Walking? No [employer] Information not available 09/07/2020 We Know That How And When People Interact With Friends And Family Can Be Very Different From Person To Person. How Often Do You Have The Opportunity To See Or Talk To People That You Care About And Feel Close To? (Ex: Talking To Friends On The Phone Or Visiting Friends Or Family Or Going To Tenriism Or Club Meetings) 5 Or More Times Per Week [employer] Information not available 09/07/2020 Excessive Alcohol Or Drug Use No [employer] Information not available 09/07/2020 We Know From Many Of Our Patients That Covering All Of Their Costs Can Be Difficult At Times. This Can Cause Stress And Impact Health. In The Past Year, Have You Been Unable To Get Any Of The Following When It Was Really Needed? No [employer] Information not available 09/07/2020 What Is Your Housing Situation Today? I Have Housing [employer] Information not available 09/07/2020 Would You Like Help Connecting To Resources? None [employer] Information not available 09/07/2020 Sex: Unknown Functional Status None recorded. Mental Status None recorded. Family History Relationship Description Onset Age of this Age Resolved Age Notes LastModified by Organization Details LastModified Time Mother Malignant neoplastic disease colon [employer] Not available 2019 15:48:25 Medical History Condition Response Coronary Artery Disease N COPD N Depression N Cancer Y Stroke N High Cholesterol N Kidney Disease N Diabetes N Asthma N Pulmonary Embolism N Hypertension N Gynecological HistoryNo gynecological history recorded. Obstetrics History GPAL:G 0 P 0 0 0 0 Past Encounters Encounter ID Performer Location Encounter Start Date Encounter Closed Date Diagnosis/Indication Diagnosis SNOMED-CT Code Diagnosis ICD10 Code Diagnosis Note [id number] JONAS JEAN [facility] [address] [place] [address] 09/07/2020 15:33:25 09/08/2020 20:10:52 Exposure to communicable disease 541372325 Z20.828 Health Concerns Section Related Observation LastModified by Organization Detai ls LastModified Time None Recorded Concern Status LastModified by Organization Details LastModified Time None Recorded Advance Directives Directive Y: Payers Encounter Date Sequence Insurance Name Policy Number Policy Luna Covered Member ID Luna Member ID Guarantor Name 09/07/2020 1 [place] [employer] Yolanda Jones [id number] Yolanda Jones 09/07/2020 2 [place] [id number] Yolanda Jones [id number] Yolanda Jones Notes Date Note Type [...] her usual state of health. Patient's 's home hospice aide told her that [facility] would come do a COVID test. Patient was unaware that [facility] is an urgent care and does not want an evaluation. JONAS JEAN [address] [place], [address], [place] [facility] 09/07/2020 16:21:54 OBGyn Episode No OBEpisode recorded.
[2024-12-08] MEDS: hydrOXYzine HCL 25 MG TABLET PO (08:41)
[2024-12-08 08:42] LABS: Basophils Percent Auto 0.6 % (0-2); Eosinophils Absolute Auto 0.2 X10*3/uL (0.0-0.4); Eosinophils Percent Auto 2.3 % (0-4); Hematocrit 41.1 % (37.0-47.0); Hemoglobin 13.9 g/dl (12.0-16.0); Imm Gran Abs Auto 0.03 X10*3/uL (0.00-0.03); Imm Gran Pct Auto 0.4 % (0.0-0.4); Lymphocytes Absolute Auto 2.2 X10*3/uL (1.2-4.9); Lymphocytes Percent Auto 32.5 % (20-40); Mean Corpuscular HGB Conc 33.8 g/dl (31.0-35.0); Mean Corpuscular Hemoglobin 30.1 pg (27.0-33.0); Mean Platelet Volume 9.8 fL (9.4-12.3); Monocytes Absolute Auto 1.1 X10*3/uL (0.1-1.2); Monocytes Percent Auto 15.5 % (2-11); Neutrophils Absolute Auto 3.3 x10*3/uL (2.0-8.3); Neutrophils Percent Auto 48.7 % (45-73); Platelet Count 264 X10*3/uL (160-400); Red Blood Count 4.62 X10*6/uL (4.20-5.50); Red Cell Distribution Width 13.1 % (11.0-16.0); White Blood Count 6.8 X10*3/uL (4.8-10.8)
[2024-12-08] MEDS: Lactated Ringers 1,000 ML 999 ML IV (08:43)
[2024-12-08 08:57] LABS: Alanine Aminotransferase 16 U/L (0-31); Alkaline Phosphatase 81 U/L (39-117); Anion Gap 16 (12-20); Aspartate Amino Transferase 20 U/L (5-31); Bilirubin Direct 0.3 mg/dL (0.0-0.5); Blood Urea Nitrogen 17 mg/dL (9-16); C Reactive Protein 7.06 mg/dL (< or = 0.50); Carbon Dioxide 20 mmol/L (22-29); Chloride 108 mmol/L (96-108); Creatinine Clr Calc Pharmacy 39.2; Estimated Glomerular Filt Rate > 60; Glucose Random 108 mg/dL (60-115); Lipase 32 U/L (8-78); Potassium 4.1 mmol/L (3.3-5.1); Sodium 140 mmol/L (135-145); Total Protein 7.2 g/dL (6.5-8.0)
[2024-12-08 08:59] LABS: Troponin-I High Sensitivity < 2.7 ng/L (<3.5-17.0)
[2024-12-08 09:13] LABS: TSH reflex Free T4 1.71 uIU/mL (0.32-4.0)
[2024-12-08] MEDS: iohexoL 350 MG/ML 100 ML INFUS..BTL 85 ML IV (09:19)
--- NOTE | 2024-12-08 09:41 | PC.NURSE ---
pt reports improvement in symptoms. says anxiety has improved
[2024-12-08 10:00] VITALS: BP 143/62; PULSE 61; RESP 16; TEMP 36.6; O2SAT 99
[2024-12-08 11:24] LABS: Appearance Urine Clear; Color Urine Yellow; Glucose Urine UA Negative (Negative); Leukocyte Esterase Urine Negative (Negative); Nitrite Urine Negative (Negative); PH 8.5 (5.0-9.0); Specific Gravity - Urine >= 1.030 (1.005-1.025); Urine Blood Negative (Negative); Urine Ketones 15 mg/dL (Negative); Urine Protein Trace mg/dL (Neg-Trace)
[2024-12-08 11:57] VITALS: BP 142/58; PULSE 63; RESP 17; TEMP 36.4; O2SAT 100
[2024-12-08 12:08] VITALS: BP 142/58; PULSE 63; RESP 17; TEMP 36.4; O2SAT 100
== END 2024-12-08 12:09 | disposition home or self-care (01) ==
PROVIDERS: Physician Assistant; Emergency Provider Emergency Medicine; PCP Internal Medicine
DX: K57.32 Diverticulitis of large intestine without perforation or abscess without bleeding (principal); R10.32 Left lower quadrant pain; R94.31 Abnormal electrocardiogram [ECG] [EKG]; R11.0 Nausea; R42 Dizziness and giddiness; R51.9 Headache, unspecified; R06.02 Shortness of breath; F41.9 Anxiety disorder, unspecified; Z79.899 Other long term (current) drug therapy
CPT/HCPCS: 36415; 74177; 80048; 80076; 81003; 83690; 83735; 84443; 84484; 85025; 86140; 93005; 96361; 96374; 96375; 99284; J2270; J2405; J7120; Q9967

== ENCOUNTER → 2024-12-08 08:22 | Outpatient (BNV) | payer MEDICARE, SELFPAY | PROVIDERS: Emergency Provider Emergency Medicine; PCP Internal Medicine; Visit Provider Internal Medicine | DX: I49.3 Ventricular premature depolarization (principal) | CPT/HCPCS: 93010 ==

== ENCOUNTER → 2024-12-08 08:22 | Outpatient (BNV) | payer MEDICARE, SELFPAY | PROVIDERS: Emergency Provider Emergency Medicine; PCP Internal Medicine; Visit Provider Radiology Diagnostic Radiology | DX: R10.32 Left lower quadrant pain (principal) | CPT/HCPCS: 74177 ==

== ENCOUNTER 2025-01-04 09:39 | Outpatient (AMB) | payer MEDICARE, SELFPAY ==
[2025-01-04 09:42] VITALS: BP 130/74; PULSE 83; TEMP 36.3; O2SAT 97; BMI 24.0
--- NOTE | 2025-01-04 09:42 | A.OFFPC_ITS ---
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 Accompanied by: Self / Same As Patient Allergies No Known Allergies [No Known Allergies*] Allergy (Verified 01/04/25 09:43) Medication List - Last Reconciled 01/04/25 by Rosanna Barney MD levothyroxine 75 mcg PO DAILY Tobacco use date assessed: 01/04/25 Fall risk assessment: No Falls in past year Last assessed Fall Risk: 01/04/25 Dental Screening Dental Screen Date: 01/04/25 Did you have a dental visit in the last 12 months?: Yes Did you have a dental problem in the last 6 months where you did not have access to dental care?: No HPI HPI Comments History of Present Illness Details 79 year old female with a past medical h istory of hypothyroid, hip pain, CTS, diverticulosis, osteoporosis, colon polyps presenting for follow up. Last seen by PCP in Jul Hypothyroid: on levothyroxine 75mcg daily. History of thyroid cancer MSK: Follows with physiatry: Difficulty getting up from seated position. Points on right buttocks/ischial area as source of pain and also points to left SI joint. No groin pain. Does not radiate to legs or feet. Denies numbness. Cramping on both feet, especially when laces are tied too tight and toes move side to side . Possible restless feet at night. Non diabetic. No past back injuries. Takes care of husbandHistory of cervical spinal stenosis, MRI 2021. Numbness on hands especially at night, diagnosed at CTS in the past but reports that numbness only when she rolls to her side. Recurrent episodes of diverticulitis. 3 episodes in the past year required ER eval Hyperlipidemia: Hesitant re statin Colonoscopy 01/2019 C-due 5 years Mammo 2018 ROS see HPI PHYSICAL EXAM: GENERAL: Alert and oriented x 3. NAD EYES: EOMI. Anicteric. HENT: Moist mucous membranes. No scleral icterus. No cervical lymphadenopathy. LUNGS: Clear to auscultation bilaterally. CARDIOVASCULAR: Regular rate and rhythm. No murmur. No JVD. ABDOMEN: Soft, non-tender +bs EXTREMITIES: No edema. Non-tender. SKIN: No rashes or lesions. Warm. NEUROLOGIC: No focal neurological deficits. CN II-XII grossly intact PSYCHIATRIC: Cooperative. Appropriate mood and affect [facility] Medical History Thyroid cancer Family History Mother No problems noted. Father No problems noted. Social History Housing: House Alcohol intake: current Alcohol intake frequency: holidays/special occasions only Patient Tobacco Use Status: Never used Tobacco e-Cigarette/Vaping Use: Never Used service: No Current occupational status: retired Cognitive needs: No Hearing needs: No Vision needs: Yes (rx glasses) Questionnaire PHQ-9 Over the last 2 weeks, how often have you been bothered by any of the following problems? 1. Little interest or pleasure in doing things: not at all 2. Feeling down, depressed, or hopeless: several days (anxiety) 3. Trouble falling or staying asleep, or sleeping too much: not at all 4. Feeling tired or having little energy: not at all 5. Poor appetite or overeating: not at all 6. Feeling bad about yourself - or that you are a failure or have let yourself or your family down: not at all 7. Trouble concentrating on things, such as reading the newspaper or watching television: not at all 8. Moving or speaking so slowly that other people could have noticed. Or the opposite - being so fidgety or restless that you have been moving around a lot more than usual: not at all 9. Thoughts that you would be better off or of hurting yourself in some way: not at all Total score: 1 Depression Screening Interpretation: Negative Depression Screening Done: Yes [id number] - PHQ-9 Billing: Yes Source: Developed by Drs. Yifan Church, Amina Giang, Todd Buchanan and colleagues, with an educational sheila from [employer]. Thrive Questionnaire Date Thrive assessed: 01/04/25 I am a: Patient Within the past 12 months, did the food you bought not last and you didn't have the money to get more?: Never true Within the past 12 months, did you worry whether your food would run out before you got money to buy more?: Never true Do you have trouble paying for medicines?: No Do you have trouble getting transportation to medical appointments?: No Do you have trouble paying your heating and electricity bill?: No Do you have trouble taking care of your child, family member or friend?: No Do you have trouble with day-to-day activities such as bathing, preparing meals, shopping, managing finances, etc.?: No Are you currently unemployed and looking for a job?: No Are you interested in more education?: No THRIVE Score: 0 AUDIT C Alcohol Use Questionnaire (AUDIT-C) 1. How often do you have a drink containing alcohol?: Monthly or less 2. How many drinks containing alcohol do you have on a typical day when you are drinking?: 1 or 2 3. How often do you have six or more drinks on one occasion?: Less than monthly Total Score: 2 STONE-7 AMB Questionnaire STONE-7 Date STONE - 7 assessed: 01/04/25 Feeling nervous, anxious, or on edge: 0 = Not at all Not being able to stop or control worryin = Not at all Worrying too much about different things: 0 = Not at all Trouble relaxin = Not at all Being so restless that it is hard to sit still: 0 = Not at all Becoming easily annoyed or irritable: 0 = Not at all Feeling afraid as if something awful might happen: 0 = Not at all Total STONE-7 score (0-4 normal; 5-9 mild; 10-14 moderate; 15-21 severe): 0 Source: Developed by Drs. Yifan Church, Amina Giang, Todd Buchanan and colleagues, with an educational sheila from [employer]. Physical exam (Primary Care) Vital Signs: Last Vital Signs Temp 97.4 F 01/04/25 09:42 Pulse 83 01/04/25 09:42 BP 130/74 01/04/25 09:42 Pulse Ox 97 01/04/25 09:42 Oxygen Delivery Method Room Air 01/04/25 09:42 BMI result Body Mass Index 24.0 Tobacco/Smoking Status: Tobacco use Status Tobacco use date assessed 01/04/25 01/04/25 09:44 Patient Tobacco Use Status Never used Tobacco 01/04/25 09:44 e-Cigarette/Vaping Use Never Used 01/04/25 09:44 PHQ-9: PHQ-9 Score PHQ-9: Total score 1 01/07/25 12:11 Depression Screening Interpretation: Negative Thrive Assessment: Date of Thrive Assessment Date Thrive assessed 01/04/25 01/04/25 09:44 Coding Level of Care Code New Pt Level 4 (87640) Complex EM visit Add On G2211 Diagnoses Hyperlipidemia, unspecified hyperlipidemia type E78.5 Hyperlipidemia type: unspecified Aortic calcification I70.0 History of thyroid cancer Z85.850 Osteoarthritis of both hips, unspecified osteoarthritis type M16.0 Osteoarthritis type: unspecified Additional Codes PHQ-9 - 63690 - PHQ-9 Billing: Yes ([id number]) Assessment & Plan Assessment & Plan (1) Hyperlipidemia: Code(s): E78.5 - Hyperlipidemia, unspecified Category: Medical Qualifiers: Hyperlipidemia type: unspecified Qualified Code(s): E78.5 - Hyperlipidemia, unspecified (2) Aortic calcification: Code(s): I70.0 - Atherosclerosis of aorta Category: Medical (3) History of thyroid cancer: Code(s): Z85.850 - Personal history of malignant neoplasm of thyroid Category: Medical (4) Degenerative joint disease of both hips: Code(s): M16.0 - Bilateral primary osteoarthritis of hip Category: Medical Qualifiers: Osteoarthritis type: unspecified Qualified Code(s): M16.0 - Bilateral primary osteoarthritis of hip Plan 79 to establish care past medical, surgical, social history reviewed Atherosclerosis on imaging-statin hesitannt. Check CT calcium score. GI referral for recurrent diverticulitis consider colonoscopy Orders: Orders Lipid Panel 01/04/25 E78.5 - Hyperlipidemia, unspecified, I70.0 - Atherosclerosis of aorta TSH reflex Free T4 01/04/25 E78.5 - Hyperlipidemia, unspecified, I70.0 - Atherosclerosis of aorta CT Coronary Calcium Score 01/04/25 E78.5 - Hyperlipidemia, unspecified, I70.0 - Atherosclerosis of aorta Referrals Gastroenterology Referral K57.92 - Diverticulitis of intestine, part unspeci fied, without perforation or abscess without bleeding, Z12.11 - Encounter for screening for malignant neoplasm of colon, Z80.0 - Family history of malignant neoplasm of digestive organs Medications: New amoxicillin-pot clavulanate 875-125 mg 1 tab PO BID 20 tabs 0RF
== END 2025-01-04 10:33 | disposition home or self-care (01) ==
LOC: HO.HMCHD 09:39
PROVIDERS: PCP Internal Medicine; Visit Provider Internal Medicine
DX: E78.5 Hyperlipidemia, unspecified (principal); I70.0 Atherosclerosis of aorta; Z85.850 Personal history of malignant neoplasm of thyroid; M16.0 Bilateral primary osteoarthritis of hip

== ENCOUNTER → 2025-01-04 09:39 | Outpatient (BNVA) | payer MEDICARE, SELFPAY | PROVIDERS: PCP Internal Medicine; Visit Provider Internal Medicine | DX: E03.9 Hypothyroidism, unspecified (principal); E78.5 Hyperlipidemia, unspecified; I70.0 Atherosclerosis of aorta; M16.0 Bilateral primary osteoarthritis of hip; K57.92 Diverticulitis of intestine, part unspecified, without perforation or abscess without bleeding; Z80.0 Family history of malignant neoplasm of digestive organs; Z85.850 Personal history of malignant neoplasm of thyroid | CPT/HCPCS: 96127; 99202 ==

== ENCOUNTER 2025-01-12 11:00 | Outpatient (RCR) | payer MEDICARE, SELFPAY ==
--- NOTE | 2024-12-18 15:57 | MHC.PT.EP ---
[facility] [place] Office [place] Office [employer] Office [address] Rosario Kumar [address] [phone] F: [phone] F: [phone] F: [phone] F: [phone] Physical Therapy Plan of Care Date of Evaluation: 12/13/24 Date of Surgery: Diagnosis: B OA of of hip, LBP unspecified, sacrococcygeal disorders not otherwise classified, DJD B hips, LBP, SIJ dysfunciton. Sp instructions: for SI joint, B hip joints, lower back, LE strengthening. Assessment: Pt is an 79 y/o female with PMHx of thyroid CA and GI tumor surgery who is referred to PT for eval and treat of B OA of of hips, LBP unspecified, sacrococcygeal disorders not otherwise classified, DJD of B hips, SIJ dysfunction. Which is resulting in decreased tolerance for lifting objects from the ground, walking long distances, rolling in bed, as well as heavier HH chores and at times caring for her dependent secondary to decreased B hip and core strength, increased lumbar tissue tension, increased LE posterior chain tightness, TTP of R hip SIJ area, multilevel DDD and stenosis, scoliotic curvature, and anterior displacement of L4 on L5 appreciated on imaging, and pain. Pt is deemed an appropriate candidate to receive skilled PT services to address their physical impairments in order to improve their functional ability. Frequency and Duration: The patient will be seen 2 x/ wk x 4 wks. Short Term Goals: Initiate home program. Improve baseline pain to < 2-3/10; initial 4-5/10. Mcfp Goals: I with Home program. Improve core strength y at least 1/2 MMT grade. Pt will report no longer painful rolling in bed. Pt will report lift moderate weights form convenient heights; initial; can only lift light weights. Treatment Plan: Modalities to reduce pain, spasms and effusion. Manual therapy to restore motion and function. Therapeutic exercise to improve strength and flexibility. Neuromuscular re-education for posture and balance. Therapeutic activities to return to functional activities of daily living. Electronically signed by: Estiven Pope PT. Please sign and return to therapist. Thank you for your referral.
--- NOTE | 2025-01-12 15:16 | MHC.PT.DC ---
[facility] [place] Office [place] Office [place] Office [address] Rosario Kumar [address] [phone] F: [phone] F: [phone] F: [phone] F: [phone] Physical Therapy Discharge Report Diagnosis: B OA of of hip, LBP unspecified, sacrococcygeal disorders not otherwise classified, DJD B hips, LBP, SIJ dysfunciton. Sp instructions: for SI joint, B hip joints, lower back, LE strengthening. Date of Surgery: Date of Evaluation: 12/13/24 Date of Discharge: 01/12/25 Treatments to Date: 8 Cancellations to Date: No Shows to Date: Discharge Status: Achieved Goals Improved Function Independent with HEP Discharge Summary: Yolanda has been an active and motivated participant in her therapy in and out of the clinic and though she persists with some pain she is improved of her pain and function and achieved her reasonable goals. Her script was for LBP and DJD, and SIJ though she did not report LBP and her issue seemed to be more of a trochanteric bursitis; her program attempts to address both issues and she is motivated to continue her program at home. Electronically signed by: Estiven Pope PT. Please sign and return to therapist. Thank you for your referral.
== END 2025-01-12 15:16 | disposition home or self-care (01) ==
LOC: HO.PT 11:00
PROVIDERS: PCP Internal Medicine; Visit Provider Physical Medicine & Rehabilitation
DX: M16.0 Bilateral primary osteoarthritis of hip (principal); M54.50 Low back pain, unspecified; M53.3 Sacrococcygeal disorders, not elsewhere classified
CPT/HCPCS: 97110; 97140; 97161

== ENCOUNTER 2025-01-26 10:12 | Outpatient (AMB) | payer MEDICARE, SELFPAY ==
[2025-01-26 10:18] VITALS: BMI 24.0
--- NOTE | 2025-01-26 10:18 | MHC.OFFVIS ---
Vital Signs 01/26/25 10:18 Height 5 ft 2 in Weight 131 lb BMI 24.0 Intake Visit Reasons: OV- Hip/Lower back pain s/p pt Intake Note: Yolanda is an 79 year old female who presents today for a follow up of her bilateral hip OA /Low back Pain/ SI Joint Dysfunction. At her last visit she was referred for Physical therapy. States she has completed her P.T and is doing a lot. States no complaints for today. Allergies No Known Allergies [No Known Allergies*] Allergy (Verified 01/26/25 10:25) HPI Comments Details: Difficulty gettting up from seated position. Points on right buttocks/ischial area as source of pain and also points to left SI joint. No groin pain. Does not radiate to legs or feet. Denies numbness. Cramping on both feet, especially when laces are tied too tight and toes move side to side . Possible restless feet at night. Non diabetic. No past back injuries. History of cervical spinal stenosis, MRI 2021. Numbness on hands especially at night, diagnosed at [facility] in the past but reports that numbness only when she rolls to her side. Takes care of . Xray right hip showed moderate arthritis; left hip none. Lumbar spondylosis on xray. PT noted asymmetry, gave patient left shoe insert but she does not wear the same shoes at home. Mostly sandals. Noted more wear on left side. [facility] Medical History (Updated 01/26/25 @ 10:56 by Inna Coronel MD) Degenerative joint disease of right hip Lower back pain Thyroid cancer Family History Mother No problems noted. Father No problems noted. Social History Housing: House Alcohol intake: current Alcohol intake frequency: holidays/special occasions only Patient Tobacco Use Status: Never used Tobacco e-Cigarette/Vaping Use: Never Used service: No Current occupational status: retired Cognitive needs: No Hearing needs: No Vision needs: Yes (rx glasses) Physical Exam Vital Signs: BMI result Body Mass Index 24.0 No tenderness over spinous processes, facets, SI joint, GT. Gait nonantalgic. No focal weakness on exam. Results Reviewed Results Reviewed: Ordering Physician: Clyde Luna MD Date of Service: 08/07/24 Procedure(s): XR hip RT min 2V Accession Number(s): [id number] cc: Clyde Luna MD~ EXAMINATION: XR HIP, RIGHT CLINICAL INFORMATION: Right hip pain for a month COMPARISON: None available. TECHNIQUE: Two views of the right hip. FINDINGS: Moderate osteoarthritis with joint space narrowing, sclerosis, and marginal osteophytes. No fracture or malalignment. No suspicious bone lesion or soft tissue calcification XR/XR hip RT min 2V IMPRESSION: Moderate right hip osteoarthritis. Electronically signed by: Arsalan Esparza MD 08/08/2024 08:20 AM [facility] Ordering Physician: Inna Pantoja Date of Service: 11/23/24 Procedure(s): XR lumbar spine 2-3V Accession Number(s): [id number] cc: Clyde Luna MD; Inna Pantoja~ CLINICAL HISTORY: M54.9 - Dorsalgia, unspecified 3 views lumbar spine Comparison: None Findings: There is 5.1 mm anterior displacement of L4 on L5. There is scoliotic curvature. No acute fractures or dislocation. There is multiple level degenerative disc and facet change. There is aortic calcification. IMPRESSION: No acute findings. This document has been electronically signed by: Madhu Matson MD on 11/23/2024 19:23:21 Ordering Physician: Inna Pantoja Date of Service: 11/23/24 Procedure(s): XR hip LT min 2V Accession Number(s): [id number] cc: Clyde Luna MD; Inna Pantoja~ CLINICAL HISTORY: M16.12 - Unilateral primary osteoarthritis, left hip 2 view, pelvis and left hip Comparison: None Findings: The bones are intact. No significant arthritic change. The soft tissues are unremarkable. IMPRESSION: No acute findings. This document has been electronically signed by: Madhu Matson MD on 11/23/2024 19:23:29 Assessment & Plan Assessment & Plan (1) Degenerative joint disease of right hip: Code(s): M16.11 - Unilateral primary osteoarthritis, right hip Category: Medical Qualifiers: Osteoarthritis type: primary Qualified Code(s): M16.11 - Unilateral primary osteoarthritis, right hip (2) Lumbar spondylosis: Code(s): M47.816 - Spondylosis without myelopathy or radiculopathy, lumbar region Category: Medical Plan She will continue home exercises taught by PT. we talked about modifying central wear at home. We talked about fall prevention. Assessment and plan discussed with patient, and patient was agreeable. All questions were answered thoroughly. Follow up 6 months. Call sooner if needed. Inna Coronel MD, SEAN Board Certified, [place] [employer] and Rehabilitation (ABPMR) Board Certified, [place] Board of Electrodiagnostic Medicine (ABEM) Coding Level of Care Code Est Pt Level 3 (76279) Diagnoses Primary osteoarthritis of right hip M16.11 Osteoarthritis type: primary Lumbar spondylosis M47.816
== END 2025-01-26 10:44 | disposition home or self-care (01) ==
LOC: HO.HOS 10:13
PROVIDERS: PCP Internal Medicine; Visit Provider Physical Medicine & Rehabilitation
DX: M16.11 Unilateral primary osteoarthritis, right hip (principal); M47.816 Spondylosis without myelopathy or radiculopathy, lumbar region
CPT/HCPCS: 99213

== ENCOUNTER → 2025-01-26 10:12 | Outpatient (BNVA) | payer MEDICARE, SELFPAY | PROVIDERS: PCP Internal Medicine; Visit Provider Physical Medicine & Rehabilitation | DX: M17.0 Bilateral primary osteoarthritis of knee (principal); M47.816 Spondylosis without myelopathy or radiculopathy, lumbar region | CPT/HCPCS: 99212 ==

== ENCOUNTER 2025-04-17 12:48 | Outpatient (REF) | payer MEDICARE, SELFPAY ==
[2025-04-25 13:13] LABS: Anti Nuclear Antibody Screen NEGATIVE (NEGATIVE)
== END 2025-04-17 12:49 | disposition home or self-care (01) ==
LOC: HO.LAB 12:48
PROVIDERS: PCP Internal Medicine; Visit Provider Nurse Practitioner
DX: Z01.818 Encounter for other preprocedural examination (principal); D12.6 Benign neoplasm of colon, unspecified; R79.82 Elevated C-reactive protein (CRP); Z80.0 Family history of malignant neoplasm of digestive organs; Z01.84 Encounter for antibody response examination
CPT/HCPCS: 36415; 85652; 86038; 86140; 86200; 86431; 99212

== ENCOUNTER 2025-04-17 12:48 | Outpatient (AMB) | payer MEDICARE, SELFPAY ==
--- NOTE | 2025-04-17 12:57 | A.OFFVIS_ITS ---
Vital Signs 3 04/17/25 13:02 Height 5 ft 2 in Weight 133 lb 9.602 oz BMI 24.4 BP 123/76 Blood Pressure Location Rt brachial Position Sitting Pulse 70 Intake Visit Reasons: colo screening Intake Note: New patient in office today for colonoscopy screening. CC: Patient reports having 3 episodes of diverticulitis in the past year. She was seen here at [facility] for her last episode of diverticulitis. Last colonoscopy about 5 years ago per patient here at [facility]. Denies other GI symptoms today. 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 She is referred by Dr. Luna. 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 There is no pleural effusion. CARDIOVASCULATURE: The heart is normal in size. There is no pericardial effusion. LIVER: The liver is normal in size and contour. No liver mass is identified. The hepatic and portal veins are patent. GALLBLADDER / BILE DUCTS: The gallbladder is unremarkable. There is no intra or extrahepatic biliary ductal dilatation. SPLEEN: The spleen is normal in size. No focal splenic lesion is identified. PANCREAS: The pancreas is unremarkable in appearance. ADRENAL GLANDS: Within normal limits. KIDNEYS/RETROPERITONEUM: No renal calculi are identified. There is no hydronephrosis. There are parapelvic cysts at the lower poles of both kidneys. LYMPH NODES: No abdominal or pelvic lymphadenopathy. VASCULATURE: The abdominal aorta demonstrates atherosclerotic calcification, but is normal in caliber. MESENTERY/PERITONEUM: No free fluid. No masses. There is no free intraperitoneal gas. STOMACH: The stomach is unremarkable. SMALL BOWEL: The small bowel is normal in caliber. COLON: There is diverticulosis of the descending and sigmoid colon. There is mild wall thickening and pericolonic inflammatory stranding about the sigmoid colon, consistent with diverticulitis. There is no adjacent extraluminal gas or loculated fluid collection. APPENDIX: The appendix is not seen, however no inflammatory changes are seen adjacent to the cecum. URINARY BLADDER/PELVIC ORGANS: The urinary bladder is unremarkable. There is a probable 1.1 cm posterior uterine fibroid. BONES / SOFT TISSUES: There is slight spondylolisthesis of L4 on L5. CT/CT abdomen pelvis w IV con IMPRESSION: Findings consistent with diverticulitis of the sigmoid colon as described. TODAY'S VISIT She was seen twice by Dr. Luna for severe abd pain in the suprapubic area, She was treated with what is likely augmentin which had a quick positive effect on the pain. The 3rd time she presented to ER and was dx'ed with this. It showed sigmoid TICS. I educate her that since this is the 3rd occurance in a year, depending on the colonoscopy result, we may consider surgery. She does not have CIC, she is very regular. However, she will have episodes of near incontinence. When this happens, the stools are formed to semi formed. No diarrhea. She does not drink much in termis of fluids I'm bad at that. She drinks mostly decaf black tea. No cardiac or respiratory problems. No anes or sed problems. No ID rpobelms Her appetite is lower now a days, she does not eat many fruits or veggies, mostly salmon. She really likes to eat nuts. Hx of GIST tumor, [place] [facility] [place] thought this was something else but was discovered when she was opened up). ROV 6 weeks. 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 Father No problems noted. Social History Housing: House Alcohol intake: current Alcohol intake frequency: holidays/special occasions only Patient Tobacco Use Status: Never used Tobacco e-Cigarette/Vaping Use: Never Used service: No Current occupational status: retired Cognitive needs: No Hearing needs: No Vision needs: Yes (rx glasses) Review of Systems Const Denies fatigue, Denies fever(s), Denies night sweats, Denies poor appetite and Denies weight loss Eyes Details: glasses Reports requires corrective lenses ENT Reports Normal hearing present, Denies dental pain, Denies dysphagia, Denies hearing loss, Denies mouth pain, Denies odynophagia, Denies throat swelling, Denies tongue swelling and Reports other (Dentition adequate) Card Reports no additional complaints Resp Reports no additional complaints GI Details: Reports abdominal pain, Denies melena, Denies bloating, Denies hematochezia, Denies constipation, Denies GI cramping, Denies dysphagia, Denies excessive flatus, Denies early satiety, Denies heartburn, Denies diarrhea, Denies nausea, Denies odynophagia, Denies vomiting and Denies hematemesis Skin/Breast Denies pruritus, Denies lesions, Denies rash and Denies jaundice Neuro Reports Normal hearing present and Denies Abnormal speech present Endo Denies fatigue Aller/Immun Denies throat swelling and Denies tongue swelling Physical Exam Const General: cooperative, no acute distress, well developed and well groomed Nutritional Appearance: well nourished and overweight Orientation/consciousness: oriented to person, oriented to place and oriented to time Limitations: No language barrier HEENT Head: Yes normocephalic and Yes atraumatic Eyes General: appearance normal, both eyes and all related structures Pupils: Equal, round and reactive pupils present Neck Neck: Yes normal visual inspection and Yes no lymphadenopathy Thyroid: Thyroid normal Resp Effort & Inspection: normal respiratory effort and able to speak in complete sentences Auscultation: clear to auscultation bilaterally Cardio Rate: regular rate Rhythm: regular rhythm Heart sounds: Normal, physiologic split S2 sound present Peripheral pulses: radial pulses present and posterior tibial pulses present GI Inspection: No distended, No Abdominal panniculus present and Yes obesity Palpation (GI): Soft to palpation, nontender, no guarding, not rigid and No hepatosplenomegaly present Percussion: Yes normal to percussion Auscultation: normal bowel sounds Rectal Exam - Female: deferred Abdomen image: 2 1. surgery from GIST tumor Skin General skin exam: no rashes or lesions noted, turgor normal, skin not dry, no jaundice, No spider nevi and no striae Rashes: no rashes Nails: normal Neuro General: oriented to person, oriented to place and oriented to time Cranial nerves: Yes Equal, round and reactive pupils present and Yes Normal hearing present Speech: No Abnormal speech present Extrem General: Yes normal to inspection, No clubbing, No cyanosis and No edema Psych Appearance: grossly normal and well kempt Mental Status: mental status grossly normal Speech and movement: Normal speech and movement present Affect: normal affect Attitude: cooperative Thought process: Normal thought process present and not confabulating Thought content: Normal thought content present Insight: Good insight present (Psych) Judgement: Good judgement present (Psych) Results Reviewed Results Reviewed: Laboratory Tests 12/08/24 08:30 WBC 6.8 Hgb 13.9 Hct 41.1 Plt Count 264 Estimated GFR > 60 Total Bilirubin 1.0 Direct Bilirubin 0.3 AST 20 ALT 16 Alkaline Phosphatase 81 C-Reactive Protein 7.06 H Lipase [address] ABD AND PELVIS FINDINGS: LOWER CHEST: The visualized lung bases are clear. There is no pleural effusion. CARDIOVASCULATURE: The heart is normal in size. There is no pericardial effusion. LIVER: The liver is normal in size and contour. No liver mass is identified. The hepatic and portal veins are patent. GALLBLADDER / BILE DUCTS: The gallbladder is unremarkable. There is no intra or extrahepatic biliary ductal dilatation. SPLEEN: The spleen is normal in size. No focal splenic lesion is identified. PANCREAS: The pancreas is unremarkable in appearance. ADRENAL GLANDS: Within normal limits. KIDNEYS/RETROPERITONEUM: No renal calculi are identified. There is no hydronephrosis. There are parapelvic cysts at the lower poles of both kidneys. LYMPH NODES: No abdominal or pelvic lymphadenopathy. VASCULATURE: The abdominal aorta demonstrates atherosclerotic calcification, but is normal in caliber. MESENTERY/PERITONEUM: No free fluid. No masses. There is no free intraperitoneal gas. STOMACH: The stomach is unremarkable. SMALL BOWEL: The small bowel is normal in caliber. COLON: There is diverticulosis of the descending and sigmoid colon. There is mild wall thickening and pericolonic inflammatory stranding about the sigmoid colon, consistent with diverticulitis. There is no adjacent extraluminal gas or loculated fluid collection. APPENDIX: The appendix is not seen, however no inflammatory changes are seen adjacent to the cecum. URINARY BLADDER/PELVIC ORGANS: The urinary bladder is unremarkable. There is a probable 1.1 cm posterior uterine fibroid. BONES / SOFT TISSUES: There is slight spondylolisthesis of L4 on L5. CT/CT abdomen pelvis w IV con IMPRESSION: Findings consistent with diverticulitis of the sigmoid colon as described. Assessment & Plan Assessment & Plan (1) Pre-op examination: Code(s): Z01.818 - Encounter for other preprocedural examination Category: Medical (2) Tubular adenoma of colon: Comment: 2019, Panitch=2 TA's Code(s): D12.6 - Benign neoplasm of colon, unspecified Category: Medical (3) Elevated C-reactive protein (CRP): Code(s): R79.82 - Elevated C-reactive protein (CRP) Category: Medical (4) Family history of colon cancer: Comment: both parents Code(s): Z80.0 - Family history of malignant neoplasm of digestive organs Category: Medical Plan She was seen twice by Dr. Luna for severe abd pain in the suprapubic area, She was treated with what is likely augmentin which had a quick positive effect on the pain. The 3rd time she presented to te ER and was dx'ed with this. It showed sigmoid TICS. I educate her that since this is the 3rd occurrence in a year, depending on the colonoscopy result, we may consider surgery. She does not have CIC, she is very regular. However, she will have episodes of near incontinence. When this happens, the stools are formed to semi formed. No diarrhea. She does not drink much in terms of fluids I'm bad at that. She drinks mostly decaf black tea. No cardiac or respiratory problems. No anes or sed problems. No ID PROBLEMS Her appetite is lower now a days, she does not eat many fruits or veggies, mostly salmon. She really likes to eat nuts. Hx of GIST tumor, surgery [place] [facility] [place] thought this was something else but was discovered when she was opened up). ROV 6 weeks. Orders: Orders 2 PATRICK Reflex Titer and Pattern Today R79.82 - Elevated C-reactive protein (CRP) C Reactive Protein Today R79.82 - Elevated C-reactive protein (CRP) Rheumatoid Factor Today R79.82 - Elevated C-reactive protein (CRP) Erythrocyte Sedimentation Rate Today R79.82 - Elevated C-reactive protein (CRP) Cyclic Citrullinated Peptide Today R79.82 - Elevated C-reactive protein (CRP) Colonoscopy - GI Use Only Today D12.6 - Benign neoplasm of colon, unspecified, Z80.0 - Family history of malignant neoplasm of digestive organs Medications: New 2 sodium,potassium,mag sulfates 17.5-3.13-1.6 gram (Suprep Bowel Prep Kit) 480 mL orally; FOR COLONOSCOPY PREP 354 mL 0RF bisacodyl (Dulcolax (bisacodyl)) 10 mg (2 x 5 mg) PO BEDTIME 4 tabs 0RF 2 days Coding Level of Care Code New Pt Level 3 (39143) Diagnoses Pre-op examination Z01.818 Tubular adenoma of colon D12.6 Elevated C-reactive protein (CRP) R79.82 Family history of colon cancer Z80.0
[2025-04-17 13:02] VITALS: BP 123/76; PULSE 70; BMI 24.4
== END 2025-04-17 13:52 | disposition home or self-care (01) ==
PROVIDERS: PCP Internal Medicine; Visit Provider Nurse Practitioner
DX: Z01.818 Encounter for other preprocedural examination (principal); Z12.11 Encounter for screening for malignant neoplasm of colon; Z86.0101 Personal history of adenomatous and serrated colon polyps; R79.82 Elevated C-reactive protein (CRP); Z80.0 Family history of malignant neoplasm of digestive organs
CPT/HCPCS: 99024

== ENCOUNTER 2025-05-29 11:26 | Outpatient (AMB) | payer MEDICARE, SELFPAY ==
--- OUTSIDE RECORDS SUMMARY | 2025-05-28 23:59 | XMS_ITS | Continuity of Care Document ---
Author Organization [facility] Address [address] [place] [address]- Care Team Providers Care Hot Tamale Man Name Role Phone Clyde Luna MD Primary Care Physician Encounter 05/21/25 - 05/28/25 [facility] [address] [place] [address]- Attending Physician: Rosanna Barney MD Admitting Physician: Rosanna Barney MD Referring Physician: Rosanna Barney MD Encounter Type: OutPatient One Time Allergies, Adverse Reactions, Alerts No Known Allergies Immunizations Given and Recorded Vaccine Date Status Refusal Reason SARS-CoV-2 (COVID-19) mRNA BNT-162b2 vac 11/19/20 Given Medications Coenzyme Q10 30 mg oral capsule See Instructions, as directed on bottle, # 30, 0 Refills, 09/30/06 10:05:04 AM EST Start Date: 09/30/06 Status: Ordered Medication Dispense Status: Completed Quantity: 30.0 Unit: Total Allowed Fills: 1 Fills Dispensed: 0 levothyroxine 0.088 mg oral tablet 0.088 mg, 1, tablet, By Mouth, Daily, # 30 tablet, 11 Refills Start Date: 09/30/06 Stop Date: 09/25/07 Status: Ordered Medication Dispense Status: Completed Quantity: 30.0 Unit: tablet Total Allowed Fills: 12 Fills Dispensed: 0 Problem List Condition Confirmation Course Effective Dates Status H ealth Status Informant Hypothyroid Confirmed Active Osteopenia Confirmed Active Postmenopausal state Confirmed Active Results Radiology Reports * Exam Date Time Procedure Performing Provider Status 05/21/25 1:[address] Heart W/O Dye Rylan Eval Auth (Verified) Notes: (CT Heart W/O Dye Rylan Eval) Reason For Exam: E78.5 HYPERLIPIDEMIA; I70.0 ATHEROSCLEROSIS OF AORTA RESULT: CT Heart W/O Dye Rylan Eval CT Heart W/O Dye Rylan Eval INDICATION: E78.5 HYPERLIPIDEMIA; I70.0 ATHEROSCLEROSIS OF AORTA. Female of age 80 , race White COMPARISON: None TECHNIQUE: Coronary artery Calcium Scoring. After a localizing field education director image was obtained, an ECG-gated noncontrast exam was obtained of the heart in late diastole. The region of interest was limited to the heart in order to optimize image quality. Weight-based protocol using automatic tube modulation was used to optimize exposure parameters. A [employer] 64 scanner was used, with Agatston scoring performed using State ([employer]) web-based software. This procedure is not being performed on thispatient for preoperative evaluation for low-risk surgery within 30 days. CTDIvol Body: 5.08 mGy, DLP Body: 76 mGy*cm. FINDINGS: Coronary Calcium Scoring Summary: Left Main: Score 0 . LAD: Score 0 . Circumflex: Score 0 . Right: Score 0 . Ramus: Score 0 . TOTAL: Score 0 . Non-coronary Findings: No significant findings. IMPRESSION: 1. No significant incidental findings. 2. The Agatston coronary calcium score is 0 . The observed calcium score is at the 0 percentile (BARONE). The Multi-Ethnic Study of Atherosclerosis (BARONE) trial on-line calculator can be used to determine the probability of having coronary calcification and the calcium score percentile for subjects basedon age, gender and race/ethnicity who are free of clinical cardiovascular disease and treated diabetes: http://www.barone-nhlbi.org/Calcium/input.aspx WSN: [id number] Ordering Physician: Rosanna Barney Dictated By: Karen Sawatn MD, V Dictated Date/Time: 05/22/25 9:38 am Reviewed By: Karen Sawant MD, V Signed By: Karen Sawant MD, V Signed Date/Time: 05/22/25 9:38 am Transcribed By: DAWN Transcribed Date/Time: 05/22/25 8:58 am Patient Care team information Care Team Personnel Name: Clyde Luna MD Position: [facility] Outreach Member Role: PCP [address]: [address] [place] [address] [place] [address]- Telecom: Care Team Related Persons Name: JULY RIVERS Name: KATY RIVERS Insurance Providers Guarantor name: DEANNA RIVERS Health Plan Information #: 1 Payer: [employer]: [employer] EXAM Payer Identifier: NA Member Number: [id number] Group Number: NA Subscriber Identifier: [id number] Relationship to Subscriber: self Coverage Type: Other specified but not otherwise classifiable (includes Hospice - Unspecified plan) Coverage Verification Date: NA Telecom: NA Address: [place]
--- NOTE | 2025-05-29 11:31 | A.OFFVIS_ITS ---
Vital Signs 05/29/25 11:41 Height 5 ft 2 in Weight 133 lb 9.602 oz BMI 24.4 BP 136/62 Blood Pressure Location Lt brachial Position Sitting Pulse 66 Intake Visit Reasons: elevated CRP, TICS Intake Note: Yolanda presents to in office follow up for TICS. CC: Patient reports doing pretty good since her last visit. Pressurization Mechanic Required: No Accompanied by: Self / Same As Patient Allergies No Known Allergies (No Known Allergies*) Allergy (Verified 05/29/25 11:45) HPI HPI elevated CRP, TICS: Details: Assessment & Plan (1) Pre-op examination: Code(s): Z01.818 - Encounter for other preprocedural examination Category: Medical (2) Tubular adenoma of colon: Comment: 2019, Panitch=2 TA's Code(s): D12.6 - Benign neoplasm of colon, unspecified Category: Medical (3) Elevated C-reactive protein (CRP): Code(s): R79.82 - Elevated C-reactive protein (CRP) Category: Medical (4) Family history of colon cancer: Comment: both parents Code(s): Z80.0 - Family history of malignant neoplasm of digestive organs Category: Medical Plan She was seen twice by Dr. Luna for severe abd pain in the suprapubic area, She was treated with what is likely augmentin which had a quick positive effect on the pain. The 3rd time she presented to te ER and was dx'ed with this. It showed sigmoid TICS. I educate her that since this is the 3rd occurrence in a year, depending on the colonoscopy result, we may consider surgery. She does not have CIC, she is very regular. However, she will have episodes of near incontinence. When this happens, the stools are formed to semi formed. No diarrhea. She does not drink much in terms of fluids I'm bad at that. She drinks mostly decaf black tea. No cardiac or respiratory problems. No anes or sed problems. No ID PROBLEMS Her appetite is lower now a days, she does not eat many fruits or veggies, mostly salmon. She really likes to eat nuts. 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 ROV 6 weeks. Orders: Orders PATRICK Reflex Titer and Pattern Today R79.82 - Elevated C-reactive protein (CRP) C Reactive Protein Today R79.82 - Elevated C-reactive protein (CRP) Rheumatoid Factor Today R79.82 - Elevated C-reactive protein (CRP) Erythrocyte Sedimentation Rate Today R79.82 - Elevated C-reactive protein (CRP) Cyclic Citrullinated Peptide Today R79.82 - Elevated C-reactive protein (CRP) Colonoscopy - GI Use Only Today D12.6 - Benign neoplasm of colon, unspecified, Z80.0 - Family history of malignant neoplasm of digestive organs Medications: New sodium,potassium,mag sulfates 17.5-3.13-1.6 gram (Suprep Bowel Prep Kit) 480 mL orally; FOR COLONOSCOPY PREP 354 mL 0RF bisacodyl (Dulcolax (bisacodyl)) 10 mg (2 x 5 mg) PO BEDTIME 4 tabs 0RF 2 days LABS: Laboratory Tests 12/08/24 04/17/25 08:30 14:06 ESR 6 C-Reactive Protein 7.06 H 0.83 H Rheumatoid Factor < 13.0 Cycl Citrul Peptide IgG <16 PATRICK Screen NEGATIVE COLONOSCOPY BIOPSY TODAY'S VISIT [facility] Medical History Gastrointestinal stromal tumor Degenerative joint disease of right hip Lower back pain Thyroid cancer Surgical History H/O thyroidectomy H/O colonoscopy Family History Mother Colon cancer Father Colon cancer Social History Housing: House Alcohol intake: current Alcohol intake frequency: holidays/special occasions only Patient Tobacco Use Status: Never used Tobacco e-Cigarette/Vaping Use: Never Used service: No Current occupational status: retired Cognitive needs: No Hearing needs: No Vision needs: Yes (rx glasses) Review of Systems Const Reports fatigue, Denies fever(s), Denies night sweats, Denies poor appetite and Denies weight loss Eyes Details: GLASSES Reports requires corrective lenses ENT Reports Normal hearing present, Denies dental pain, Denies dysphagia, Denies hearing loss, Denies mouth pain, Denies odynophagia, Denies throat swelling, Denies tongue swelling and Reports other (Dentition adequate) Card Reports no additional complaints Resp Reports no additional complaints GI Details: Near fecal incontinence of formed stool in the afternoons Denies abdominal pain, Denies melena, Denies bloating, Denies hematochezia, Denies constipation, Denies GI cramping, Denies dysphagia, Denies excessive flatus, Denies early satiety, Denies heartburn, Denies diarrhea, Denies nausea, Denies odynophagia, Denies vomiting and Denies hematemesis Skin/Breast Denies pruritus, Denies lesions, Denies rash and Denies jaundice Neuro Reports Normal hearing present and Denies Abnormal speech present Psych Reports anxiety Endo Reports fatigue Aller/Immun Denies throat swelling and Denies tongue swelling Physical Exam Vital Signs: Last Vital Signs Pulse 66 05/29/25 11:41 BP 136/62 05/29/25 11:41 BMI result Body Mass Index 24.4 Const General: cooperative, no acute distress, well developed and well groomed Nutritional Appearance: average body habitus and well nourished Orientation/consciousness: oriented to person, oriented to place and oriented to time Limitations: No language barrier HEENT Head: Yes normocephalic and Yes atraumatic Eyes General: appearance normal, both eyes and all related structures Pupils: Equal, round and reactive pupils present Neck Neck: Yes normal visual inspection and Yes no lymphadenopathy Thyroid: Thyroid normal Resp Effort & Inspection: normal respiratory effort and able to speak in complete sentences Auscultation: clear to auscultation bilaterally Cardio Rate: regular rate Rhythm: regular rhythm Heart sounds: Normal, physiologic split S2 sound present Peripheral pulses: radial pulses present and posterior tibial pulses present GI Inspection: No distended and No Abdominal panniculus present Palpation (GI): Soft to palpation, nontender, no guarding, not rigid and No hepatosplenomegaly present Percussion: Yes normal to percussion Auscultation: normal bowel sounds Rectal Exam - Female: deferred Skin General skin exam: no rashes or lesions noted, turgor normal, skin not dry, no jaundice, No spider nevi and no striae Rashes: no rashes Nails: normal Neuro General: oriented to person, oriented to place and oriented to time Cranial nerves: Yes Equal, round and reactive pupils present and Yes Normal hearing present Speech: No Abnormal speech present Extrem General: Yes normal to inspection, No clubbing, No cyanosis and No edema Psych Appearance: grossly normal and well kempt Mental Status: mental status grossly normal Speech and movement: Normal speech and movement present Affect: normal affect Attitude: cooperative Thought process: Normal thought process present and not confabulating Thought content: Normal thought content present Insight: Good insight present (Psych) Judgement: Good judgement present (Psych) Assessment & Plan Assessment & Plan (1) Fecal incontinence: Code(s): R15.9 - Full incontinence of feces Category: Medical (2) IBS (irritable bowel syndrome): Code(s): K58.9 - Irritable bowel syndrome, unspecified Category: Medical (3) Elevated C-reactive protein (CRP): Comment: As high as 7 in November of 2024 but then lower in March of 2025 Code(s): R79.82 - Elevated C-reactive protein (CRP) Category: Medical Plan - The patient is an 80-year-old female presenting with sleep disturbance and fecal incontinence. - Diverticulitis was noted in past evaluations following suprapubic abdominal pain but has resolved after being treated with Augmentin. - An elevated CRP was observed previously, which decreased over a few months; the autoimmune workup did not reveal any significant findings. - Sleep disturbances have been a long-standing issue, aggravated by stress related to caregiving responsibilities. - Fecal incontinence is reported in the afternoons with formed stools; daily morning bowel movements are regular, without associated diarrhea or cramping. -colonoscopy has been ordered but of course has not yet been scheduled. -begin trial of dicyclomine to see if this helps with the after noon near fecal incontinence of formed stools. Return office visit in 8 weeks COLONOSCOPY BIOPSY Medications: New dicyclomine 10 mg PO BID 60 caps 3RF K58.9 - Irritable bowel syndrome, unspecified, R15.9 - Full incontinence of feces Coding Level of Care Code Est Pt Level 3 (56324) Diagnoses Fecal incontinence R15.9 IBS (irritable bowel syndrome) K58.9 Elevated C-reactive protein (CRP) R79.82
[2025-05-29 11:41] VITALS: BP 136/62; PULSE 66; BMI 24.4
== END 2025-05-29 12:34 | disposition home or self-care (01) ==
LOC: HO.HGI 11:27
PROVIDERS: PCP Internal Medicine; Visit Provider Nurse Practitioner
DX: R15.9 Full incontinence of feces (principal); K58.9 Irritable bowel syndrome, unspecified; R79.82 Elevated C-reactive protein (CRP)
CPT/HCPCS: 99213

== ENCOUNTER → 2025-05-29 11:26 | Outpatient (BNVA) | payer MEDICARE, SELFPAY | PROVIDERS: PCP Internal Medicine; Visit Provider Nurse Practitioner | DX: R79.82 Elevated C-reactive protein (CRP) (principal); K58.9 Irritable bowel syndrome, unspecified; R15.9 Full incontinence of feces; Z80.0 Family history of malignant neoplasm of digestive organs; Z86.0101 Personal history of adenomatous and serrated colon polyps; G47.9 Sleep disorder, unspecified; Z87.19 Personal history of other diseases of the digestive system | CPT/HCPCS: 99212 ==

== ENCOUNTER 2025-07-31 11:28 | Outpatient (AMB) | payer MEDICARE, SELFPAY ==
--- NOTE | 2025-07-31 11:35 | A.OFFVIS_ITS ---
Vital Signs 07/31/25 12:02 Height 5 ft 2 in Weight 130 lb 1.164 oz BMI 23.8 BP 131/62 Blood Pressure Location Lt brachial Position Sitting Pulse 71 Intake Visit Reasons: Follow Up IBS Intake Note: Yolanda presents in the office as a follow up for IBS. CC: She states that she is not having any concerns at this time. Slot Floor Supervisor Required: No Allergies No Known Allergies (No Known Allergies*) Allergy (Verified 07/31/25 12:04) HPI HPI Follow Up IBS: Details: Assessment & Plan (1) Fecal incontinence: Code(s): R15.9 - Full incontinence of feces Category: Medical (2) IBS (irritable bowel syndrome): Code(s): K58.9 - Irritable bowel syndrome, unspecified Category: Medical (3) Elevated C-reactive protein (CRP): Comment: As high as 7 in November of 2024 but then lower in March of 2025 Code(s): R79.82 - Elevated C-reactive protein (CRP) Category: Medical Plan - The patient is an 80-year-old female presenting with sleep disturbance and fecal incontinence. - Diverticulitis was noted in past evaluations following suprapubic abdominal pain but has resolved after being treated with Augmentin. - An elevated CRP was observed previously, which decreased over a few months; the autoimmune workup did not reveal any significant findings. - Sleep disturbances have been a long-standing issue, aggravated by stress related to caregiving responsibilities. - Fecal incontinence is reported in the afternoons with formed stools; daily morning bowel movements are regular, without associated diarrhea or cramping. -colonoscopy has been ordered but of course has not yet been scheduled. -begin trial of dicyclomine to see if this helps with the after noon near fecal incontinence of formed stools. 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 Lower back pain Thyroid cancer Surgical History H/O thyroidectomy H/O colonoscopy Family History Mother Colon cancer Father Colon cancer Social History Housing: House Alcohol intake: current Alcohol intake frequency: holidays/special occasions only Patient Tobacco Use Status: Never used Tobacco e-Cigarette/Vaping Use: Never Used service: No Current occupational status: retired Cognitive needs: No Hearing needs: No Vision needs: Yes (rx glasses) Review of Systems Const Denies fatigue, Denies fever(s), Denies night sweats, Denies poor appetite and Denies weight loss ENT Reports Normal hearing present, Denies dental pain, Denies dysphagia, Denies hearing loss, Denies mouth pain, Denies odynophagia, Denies throat swelling, Denies tongue swelling and Reports other (Dentition adequate) Card Reports no additional complaints Resp Reports no additional complaints GI Details: Denies abdominal pain, Denies melena, Reports bloating, Denies hematochezia, Denies constipation, Reports GI cramping, Denies dysphagia, Denies excessive flatus, Denies early satiety, Denies heartburn, Denies diarrhea, Reports loose stools, Denies nausea, Denies odynophagia, Denies vomiting and Denies hematemesis Skin/Breast Denies pruritus, Denies lesions, Denies rash and Denies jaundice Neuro Reports Normal hearing present and Denies Abnormal speech present Endo Denies fatigue Aller/Immun Denies throat swelling and Denies tongue swelling Physical Exam Vital Signs: Last Vital Signs Pulse 71 07/31/25 12:02 BP 131/62 07/31/25 12:02 BMI result Body Mass Index 23.8 Const General: cooperative, no acute distress, well developed and well groomed Nutritional Appearance: average body habitus and well nourished Orientation/consciousness: oriented to person, oriented to place and oriented to time Limitations: No language barrier HEENT Head: Yes normocephalic and Yes atraumatic Eyes General: appearance normal, both eyes and all related structures Pupils: Equal, round and reactive pupils present Neck Neck: Yes normal visual inspection and Yes no lymphadenopathy Thyroid: Thyroid normal Resp Effort & Inspection: normal respiratory effort and able to speak in complete sen tences Auscultation: clear to auscultation bilaterally Cardio Rate: regular rate Rhythm: regular rhythm Heart sounds: Normal, physiologic split S2 sound present Peripheral pulses: radial pulses present and posterior tibial pulses present GI Inspection: No distended and No Abdominal panniculus present Palpation (GI): Soft to palpation, nontender, no guarding, not rigid and No hepa tosplenomegaly present Percussion: Yes normal to percussion Auscultation: normal bowel sounds Rectal Exam - Female: deferred Skin General skin exam: no rashes or lesions noted, turgor normal, skin not dry, no jaundice, No spider nevi and no striae Rashes: no rashes Nails: normal Neuro General: oriented to person, oriented to place and oriented to time Cranial nerves: Yes Equal, round and reactive pupils present and Yes Normal hearing present Speech: No Abnormal speech present Extrem General: Yes normal to inspection, No clubbing, No cyanosis and No edema Psych Appearance: grossly normal and well kempt Mental Status: mental status grossly normal Speech and movement: Normal speech and movement present Affect: normal affect Attitude: cooperative Thought process: Normal thought process present and not confabulating Thought content: Normal thought content present Insight: Limited insight present (Psych) Judgement: Limited judgement present (Psych) Assessment & Plan Assessment & Plan (1) IBS (irritable bowel syndrome): Code(s): K58.9 - Irritable bowel syndrome, unspecified Category: Medical (2) Fecal incontinence: Code(s): R15.9 - Full incontinence of feces Category: Medical Plan We initiated dicyclomine 10 mg twice a day at the last visit - The patient is an 80-year-old female presenting with symptoms related to Irritable Bowel Syndrome. - She experiences bowel movement issues, with regular morning movements but looseness and incontinence in the afternoon, leading to inconvenience and discomfort. - She has trialed dicyclomine but is cautious about its use due to fear of constipation, which is unusual for her history. She is reassured that she should utilize this medication as it is very unlikely in her case to cause constipation. I suggest she start taking at least 1 and perhaps 2 capsules before her midday meal. - she has not yet been contacted for her colonoscopy. Return office visit in 4 weeks COLONOSCOPY BIOPSY Coding Level of Care Code Est Pt Level 3 (08819) Diagnoses IBS (irritable bowel syndrome) K58.9 Fecal incontinence R15.9
[2025-07-31 12:02] VITALS: BP 131/62; PULSE 71; BMI 23.8
--- OUTSIDE RECORDS SUMMARY | 2025-07-31 14:06 | XMS_ITS | Data Portability ---
Author Organization [place] [facility] Address [address] [place] [id number] Care Team Providers Care Clarity Specialists Name Role Phone NIKUNJ RAMOS Primary Care [...] her usual state of health. Patient's 's metalworker told her that would come do a [...] often. Call for new or worsening sxs. [email or web address] Not available 09/07/2020 16:21:39 Plan of Treatment Reminders Order Date Submit Date Provider Last Modified By Organization Details Last Modified Time Details Appointments None recorded. Lab SARS CoV 2 RNA (COVID-19), QL, policy and planning manager-PCR, respiratory specimen 2019 020 [id number] [facility] (Centralized Electronic Ordering - All Locations), Patient Can Go To The Location Of Their Choice, [id number] 0 19:23:19 Referral None recorded. Procedures None [...] testi ng. Resul t repor jessie to [facility]. This test has been autho rized by the FDA under an Emerg ency Use Autho rizat ion (EUA) for use by autho rized labor atori es. Test perfo rmed by [facility] at the [facility] of [facility] and Billy pollard, [address] [facility] [place] dial [phone] . CLIA ID: [id number] , CAP: [id number] 96. Medic al Direc tor: Yari Kelley, PhD [facility] (NOTE ) The [facility] SARS- CoV-2 Real- [...] limit ed to the [facility] or[facility] at the [facility] which is certi fied under the Clini [...] Go To The Location Of Their Choice, [id number] 09/11/2020 12:38:56 Result Notes None recorded. Problems Name Problem SNOMED Code Status Onset Date Resolution Date Notes Provider Name and Address Organization Details Recorded Time Hypothyroidis m [id number] Active 2019 JONAS JEAN [address], [facility] [place], [id number], [place] [facility] 0 15:46:06 Problem [...] blood by Pulse oximetry Body temperature Systolic And Diastolic Provider Name and Address Organization Details Last Updated DateTime 0 20 /min 76 /min 98 % 98 % 98.2 [degF] 126/68 mm[Hg] Not Available [facility] 0 15:41:28 Social History Question Answer Notes LastModified by Organizat ion Details LastModified Time Tobacco Smoking Status Never Smoker JONAS JEAN [address], [place], [address], [place] [facility] 09/07/2020 15:47:38 Do You Have An Advance Directive? Yes Zookal Information not available 09/07/2020 What Is Your Code Status? DNR Zookal Information not available 09/07/2020 Within The Past 12 Months, Has It Happened That The Food You Bought Just Didn't Last And You Didn't Have Money To Get More. No Zookal Information not available 09/07/2020 Within The Past 12 Months, Have You Worried That Your Food Would Run Out Before You Got Money To Buy More. No Zookal Information not available 09/07/2020 Fall Risk: Do You Feel Unsteady When Standing Or Walking? No Zookal Information not available 09/07/2020 We Know That How And When People Interact With Friends And Family Can Be Very Different From Person To Person. How Often Do You Have The Opportunity To See Or Talk To People That You Care About And Feel Close To? (Ex: Talking To Friends On The Phone Or Visiting Friends Or Family Or Going To [employer] Or Club Meetings) 5 Or More Times Per Week Zookal Information not available 09/07/2020 Excessive Alcohol Or Drug Use No Information not available 09/07/2020 We Know From Many Of Our Patients That Covering All Of Their Costs Can Be Difficult At Times. This Can Cause Stress And Impact Health. In The Past Year, Have You Been Unable To Get Any Of The Following When It Was Really Needed? No Zookal Information not available 09/07/2020 What Is Your Housing Situation Today? I Have Housing badStanmore Implants Worldwideki Information not available 09/07/2020 Would You Like Help Connecting To Resources? None Information not available 09/07/2020 Sex: Unknown Functional Status None recorded. Mental Status None recorded. Family History Relationship Description Onset Age of this Age Resolved Age Notes LastModified by Organization Details LastModified Time Mother Malignant neoplastic disease colon [email or web address] Not available 2019 15:48:25 Medical History Condition Response Diabetes N Coronary Artery Disease N High Cholesterol N Cancer Y Pulmonary Embolism N Stroke N Hypertension N Asthma N COPD N Depression N Kidney Disease N Gynecological HistoryNo gynecological history recorded. Obstetrics History GPAL:G 0 P 0 0 0 0 Past Encounters Encounter ID Performer Location Encounter Start Date Encounter Closed Date Diagnosis/Indication Diagnosis SNOMED-CT Code Diagnosis ICD10 Code Diagnosis IMO Codes Diagnosis Note [id number] JONAS JEAN [facility] [address] [place] [address] 09/07/2020 15:33:25 09/08/2020 20:10:52 Exposure to communicable disease 289427738 Z20.828 Health Concerns Section Related Observation LastModified by Organization Detai ls LastModified Time None Recorded Concern Status LastModified by Organization Details LastModified Time None Recorded Advance Directives Directive Y: Payers Insurance Date Sequence Insurance Name Policy Number Policy Luna Covered Member ID Luna Member ID Guarantor Name 09/06/2020 2 [place] Yolanda Jones [id number] Yolanda Jones 09/06/2020 1 *SELF PAY* Yolanda Joens [id number] Yolanda Jones 09/10/2020 1 [place] Yolanda Jones [id number] Yolanda Jones 09/07/2020 2 [place] [id number] Yolanda Jones [id number] Yolanda Jones 09/07/2020 2 [place] [id number] Yolanda Jones [id number] Yolanda Jones 09/06/2020 2 [place] Yolanda Jones [id number] Yolanda Jones Notes Date Note Type [...] her usual state of health. Patient's 's metalworker told her that would come do a COVID test. Patient was unaware that is an urgent care and does not want an evaluation. JONAS JEAN [address] [place], [address], [place] [facility] 09/07/2020 16:21:54 OBGyn Episode No OBEpisode recorded.
== END 2025-07-31 12:35 | disposition home or self-care (01) ==
LOC: HO.HGI 11:28
PROVIDERS: PCP Internal Medicine; Visit Provider Nurse Practitioner
DX: K58.9 Irritable bowel syndrome, unspecified (principal); R15.9 Full incontinence of feces
CPT/HCPCS: 99213

== ENCOUNTER → 2025-07-31 11:28 | Outpatient (BNVA) | payer MEDICARE, SELFPAY | PROVIDERS: PCP Internal Medicine; Visit Provider Nurse Practitioner | DX: K58.9 Irritable bowel syndrome, unspecified (principal); R15.9 Full incontinence of feces | CPT/HCPCS: 99212 ==

== ENCOUNTER 2025-08-03 11:04 | Outpatient (AMB) | payer MEDICARE, SELFPAY ==
--- NOTE | 2025-08-03 11:09 | MHC.OFFVIS ---
Vital Signs 08/03/25 11:14 Height 5 ft 2 in Weight 130 lb BMI 23.8 Intake Visit Reasons: OV Hip/Lower back pain s/p pt Intake Note: Yolanda is a 80 year old female who presents today as a follow up for her hip and lower back pain. At last visit she was referred to physical therapy. At today's visit she states that physical therapy went well but now she has noticed that her her right lower back pain flairs up when she is sitting for longer periods of time, which is new. Patient noted that the pain does not radiate down her legs. Patient would like to add that next week she has her first appointment with her new PCP and will update our office once she knows their name. Allergies No Known Allergies (No Known Allergies*) Allergy (Verified 07/31/25 12:04) Medication List - Last Reconciled 08/03/25 by Inna Coronel MD bisacodyl (Dulcolax (bisacodyl)) 10 mg (2 x 5 mg) PO BEDTIME 2 days dicyclomine 10 mg PO BID levothyroxine 75 mcg PO DAILY polyethylene glycol 3350 (Miralax) 238 grams PO ONCE 1 day sodium,potassium,mag sulfates 17.5-3.13-1.6 gram (Suprep Bowel Prep Kit) 480 mL orally; FOR COLONOSCOPY PREP HPI Comments Details: When I first saw her, she had difficulty gettting up from seated position. Points on right buttocks/ischial area as source of pain and also points to left SI joint. No groin pain. Does not radiate to legs or feet. Denies numbness. Cramping on both feet, especially when laces are tied too tight and toes move side to side . Possible restless feet at night. Non diabetic. No past back injuries. History of cervical spinal stenosis, MRI 2021. Numbness on hands especially at night, diagnosed at [facility] in the past but reports that numbness only when she rolls to her side. Takes care of . Xray right hip showed moderate arthritis; left hip none. Lumbar spondylosis on xray. PT noted asymmetry, gave patient left shoe insert but she does not wear the same shoes at home. Mostly sandals. Noted more wear on left side. Just started noticing some pain on right lower back when she gets up after prolonged sitting. It goes away pretty fast after walking. No numbness or tingling. No weakness. 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 Gillet test negative. There is some tenderness over right GT. No tenderness over lumbar spinous processes. Vital Signs: BMI result Body Mass Index 23.8 No tenderness over spinous processes, facets, SI joint, GT. Gait nonantalgic. No focal weakness on exam. Results Reviewed Results Reviewed: Ordering Physician: Clyde Luna MD Date of Service: 08/07/24 Procedure(s): XR hip RT min 2V Accession Number(s): [id number] cc: Clyde Luna MD~ EXAMINATION: XR HIP, RIGHT CLINICAL INFORMATION: Right hip pain for a month COMPARISON: None available. TECHNIQUE: Two views of the right hip. FINDINGS: Moderate osteoarthritis with joint space narrowing, sclerosis, and marginal osteophytes. No fracture or malalignment. No suspicious bone lesion or soft tissue calcification XR/XR hip RT min 2V IMPRESSION: Moderate right hip osteoarthritis. Electronically signed by: Arsalan Esparza MD 08/08/2024 08:20 AM [facility] [place] [place] Ordering Physician: Inna Pantoja Date of Service: 11/23/24 Procedure(s): XR lumbar spine 2-3V Accession Number(s): [id number] cc: Clyde Luna MD; Inna Pantoja~ CLINICAL HISTORY: M54.9 - Dorsalgia, unspecified 3 views lumbar spine Comparison: None Findings: There is 5.1 mm anterior displacement of L4 on L5. There is scoliotic curvature. No acute fractures or dislocation. There is multiple level degenerative disc and facet change. There is aortic calcification. IMPRESSION: No acute findings. This document has been electronically signed by: Madhu Matson MD on 11/23/2024 19:23:21 Ordering Physician: Inna Pantoja Date of Service: 11/23/24 Procedure(s): XR hip LT min 2V Accession Number(s): [id number] cc: Clyde Luna MD; Inna Pantoja~ CLINICAL HISTORY: M16.12 - Unilateral primary osteoarthritis, left hip 2 view, pelvis and left hip Comparison: None Findings: The bones are intact. No significant arthritic change. The soft tissues are unremarkable. IMPRESSION: No acute findings. This document has been electronically signed by: Madhu Matson MD on 11/23/2024 19:23:29 Assessment & Plan Assessment & Plan (1) Sacroiliac joint dysfunction of both sides: Code(s): M53.3 - Sacrococcygeal disorders, not elsewhere classified Category: Medical (2) Acquired leg length discrepancy: Code(s): M21.70 - Unequal limb length (acquired), unspecified site Category: Medical Plan Right SI joint dysfunction, with leg length discrepancy. No signs of lumbar radiculopathy. We talked about what SI joint dysfunction means. We talked about what to do at home to avoid exacerbation. She was given inserts by PT and highly encouraged her to use that. She does not have enough pain to need any injection. We will continue to observe. Assessment and plan discussed with patient, and patient was agreeable. All questions were answered thoroughly. Inna Coronel MD, SEAN Board Certified, [place] Board of Physical Medicine and Rehabilitation (ABPMR) Board Certified, [place] Board of Electrodiagnostic Medicine (ABEM) Coding Level of Care Code Est Pt Level 3 (44788) Diagnoses Sacroiliac joint dysfunction of both sides M53.3 Acquired leg length discrepancy M21.70
[2025-08-03 11:14] VITALS: BMI 23.8
--- OUTSIDE RECORDS SUMMARY | 2025-08-03 13:20 | XMS_ITS | Data Portability ---
Author Organization [place] [facility] Address [address] [place] [id number] Care Team Providers Care Assistant Professor Of Sociology Name Role Phone NIKUNJ RAMOS Primary Care [...] her usual state of health. Patient's 's workers' compensation claims supervisor told her that would come do a [...] often. Call for new or worsening sxs. [email or web address] Not available 09/07/2020 16:21:39 Plan of Treatment Reminders Order Date Submit Date Provider Last Modified By Organization Details Last Modified Time Details Appointments None recorded. 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 Procedures None [...] testi ng. Resul t repor jessie to [facility]. This test has been autho rized by the FDA under an Emerg ency Use Autho rizat ion (EUA) for use by autho rized labor atori es. Test perfo rmed by [facility] at the [facility] and Billy pollard, [address] [facility] [place] dial [phone] . CLIA ID: [id number] , CAP: [id number]. Medic al Direc tor: Yari Kelley, PhD [facility] (NOTE ) The CRSP SARS- CoV-2 Real- [...] limit ed to the [facility] at the [facility] which is certi fied under [...] Go To The Location Of Their Choice, [id number] 09/11/2020 12:38:56 Result Notes None recorded. Problems Name Problem SNOMED Code Status Onset Date Resolution Date Notes Provider Name and Address Organization Details Recorded Time Hypothyroidis m [id number] Active 2019 JONAS JEAN [address], [facility] [place], [address], [place] [facility] 0 15:46:06 Problem [...] Never Smoker JONAS JEAN [address], [place], [address], [place] [facility] 09/07/2020 15:47:38 Do You Have An Advance Directive? Yes Sweet Cred Information not available 09/07/2020 What Is Your Code Status? DNR Sweet Cred Information not available 09/07/2020 Within The Past 12 Months, Has It Happened That The Food You Bought Just Didn't Last And You Didn't Have Money To Get More. No Sweet Cred Information not available 09/07/2020 Within The Past 12 Months, Have You Worried That Your Food Would Run Out Before You Got Money To Buy More. No Sweet Cred Information not available 09/07/2020 Fall Risk: Do You Feel Unsteady When Standing Or Walking? No Sweet Cred Information not available 09/07/2020 We Know That How And When People Interact With Friends And Family Can Be Very Different From Person To Person. How Often Do You Have The Opportunity To See Or Talk To People That You Care About And Feel Close To? (Ex: Talking To Friends On The Phone Or Visiting Friends Or Family Or Going To [employer] Or Club Meetings) 5 Or More Times Per Week Sweet Cred Information not available 09/07/2020 Excessive Alcohol Or Drug Use No Information not available 09/07/2020 We Know From Many Of Our Patients That Covering All Of Their Costs Can Be Difficult At Times. This Can Cause Stress And Impact Health. In The Past Year, Have You Been Unable To Get Any Of The Following When It Was Really Needed? No Sweet Cred Information not available 09/07/2020 What Is Your Housing Situation Today? I Have Housing badBOS [employer] Information not available 09/07/2020 Would You Like [...] ICD10 Code Diagnosis IMO Codes Diagnosis Note [id number] JONAS JEAN [facility] [address] [place] [address] 09/07/2020 15:33:25 09/08/2020 20:10:52 Exposure to communicable disease [id number] Z20.828 Health Concerns Section Related Observation LastModified by Organization Detai ls LastModified Time None Recorded Concern Status LastModified by Organization Details LastModified Time None Recorded Advance Directives Directive Y: Payers Insurance Date Sequence Insurance Name Policy Number Policy Luna Covered Member ID Luna Member ID Guarantor Name 09/06/2020 2 [place] Yolanda Jones [id number] Yolanda Jones 09/06/2020 1 *SELF PAY* Yolanda Jones [id number] Yolanda Jones 09/10/2020 1 [place] Yolanda Jones [id number] Yolanda Jones 09/07/2020 2 [place] [id number] Yolanda Jones [id number] Yolanda Jones 09/07/2020 2 [place] [id number] Yolanda Jones [id number] Yolanda Jones 09/06/2020 2 [place] ([place] Yolanda Jones [id number] Yolanda Jones Notes Date Note Type [...] her usual state of health. Patient's 's workers' compensation claims supervisor told her that would come do a COVID test. Patient was unaware that is an urgent care and does not want an evaluation. JONAS JEAN [address] [place], [address], [place] [facility] 09/07/2020 16:21:54 OBGyn Episode No OBEpisode recorded.
== END 2025-08-03 13:02 | disposition home or self-care (01) ==
LOC: HO.HOS 11:05
PROVIDERS: PCP Internal Medicine; Visit Provider Physical Medicine & Rehabilitation
DX: M53.3 Sacrococcygeal disorders, not elsewhere classified (principal); M21.70 Unequal limb length (acquired), unspecified site
CPT/HCPCS: 99213

== ENCOUNTER → 2025-08-03 11:04 | Outpatient (BNVA) | payer MEDICARE, SELFPAY | PROVIDERS: PCP Internal Medicine; Visit Provider Physical Medicine & Rehabilitation | DX: M53.3 Sacrococcygeal disorders, not elsewhere classified (principal); M25.551 Pain in right hip; M16.12 Unilateral primary osteoarthritis, left hip | CPT/HCPCS: 99212 ==

== ENCOUNTER 2025-08-10 10:24 | Outpatient (AMB) | payer MEDICARE, SELFPAY ==
--- NOTE | 2025-08-10 10:28 | MHC.PC.OV ---
Vital Signs 08/10/25 10:32 Height 5 ft 1.89 in Weight 134 lb BMI 24.6 BP 140/68 H Blood Pressure Location Lt brachial Position Sitting Respiration 18 Pulse 75 Pulse Source Pulse Oximeter Temp 97.4 F Temp Source Temporal Artery Scan Pulse Oximetry (%) 96 Oxygen Delivery Method Room Air Intake Visit Reasons: Annual Training Development Specialist Required: No Accompanied by: Self / Same As Patient Allergies No Known Allergies (No Known Allergies*) Allergy (Verified 08/10/25 10:28) Medication List - Last Reconciled 08/10/25 by Carlitos Fonseca MD dicyclomine 10 mg PO ONCE levothyroxine 75 mcg PO DAILY Tobacco use date assessed: 01/04/25 Dental Screening Dental Screen Date: 01/04/25 HPI HPI Comments History of Present Illness Details The patient is an 80-year-old female presenting for management of chronic conditions and evaluation of symptoms including hand cramping. Her primary complaint is cramping in her hands and feet, which occurs at random times and is not related to cold temperatures. The patient has a diagnosis of arthritis, with some visible deviation in her fingers, but does not have rheumatoid arthritis. Her medical history is notable for hypothyroidism, which has been stable for many years on levothyroxine 75 mcg daily, with her last thyroid check in November showing stable levels. She also has a history of irritable bowel syndrome, osteoporosis, and three past episodes of diverticulitis, the most recent of which occurred several months ago in November. Following the diverticulitis episodes, she developed fecal incontinence in the afternoons, for which she was prescribed dicyclomine. Regarding her cardiovascular risk factors, her blood pressure readings have been consistently high in the 140s and even 160s since at least November of this year, which she attributes to stress. She has high cholesterol with an LDL of 183 mg/dL and total cholesterol of 276 mg/dL, but she has declined statin therapy. Her CRP levels have been consistently high, previously at 7 and more recently at 0.8, though her PATRICK and rheumatoid factor are negative. A cardiac calcium score was performed, but the results have not been received. The patient acknowledges she does not eat a healthy diet and has previously tried a magnesium sulfate supplement for her cramps without success. Medical History: - Arthritis - Hypothyroidism - Irritable Bowel Syndrome (IBS) - Osteoporosis - History of three episodes of diverticulitis - Fecal incontinence - Hyperlipidemia - Hypertension Medications: - Levothyroxine 75 mcg once a day for hypothyroidism. - Dicyclomine for fecal incontinence. Diagnostic Results: - Labs: - Blood work (December): Good counts, normal electrolytes. - TSH (November): Levels stable. - CRP: Last level was 0.8 (cutoff 0.5), previously as high as 7. - PATRICK factor: Negative. - Rheumatoid factor: Negative. - Lipid Panel: Total cholesterol 276 mg/dL, LDL 183 mg/dL. - Tests and Diagnostics: - Cardiac Calcium Score: Performed, but results are not available. Social History: - Diet: Reports not eating properly. - Stress: Reports a lot of stress in her life. 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 Lower back pain Thyroid cancer Surgical History (Updated 08/08/25 @ 17:21 by Daria Bullock) H/O thyroidectomy H/O colonoscopy (~02/22/19) Family History Mother Colon cancer Father Colon cancer Social History Housing: House Alcohol intake: current Alcohol intake frequency: holidays/special occasions only Patient Tobacco Use Status: Never used Tobacco e-Cigarette/Vaping Use: Never Used service: No Current occupational status: retired Cognitive needs: No Hearing needs: No Vision needs: Yes (rx glasses) Questionnaire Thrive Questionnaire Date Thrive assessed: 01/04/25 STONE-7 AMB Questionnaire STONE-7 Date STONE - 7 assessed: 01/04/25 Source: Developed by Drs. Yifan Church, Amina Giang, Todd Buchanan and colleagues, with an educational sheila from [employer]. Review of Systems Narrative - General: Reports feeling pretty good, about 99% fine. - Musculoskeletal: Reports intermittent cramping in hands and feet. - Gastrointestinal: Reports episodes of fecal incontinence in the afternoons, but otherwise regular bowel movements. Denies abdominal pain. - Genitourinary: Reports normal urination. All systems reviewed & are unremarkable except as reviewed in HPI and above Physical exam (Primary Care) Vital Signs: Last Vital Signs Temp 97.4 F 08/10/25 10:32 Pulse 75 08/10/25 10:32 Resp 18 08/10/25 10:32 BP 140/68 H 08/10/25 10:32 Pulse Ox 96 08/10/25 10:32 Oxygen Delivery Method Room Air 08/10/25 10:32 BMI result Body Mass Index 24.6 Tobacco/Smoking Status: Tobacco use Status Tobacco use date assessed 01/04/25 08/10/25 10:35 Patient Tobacco Use Status Never used Tobacco 08/10/25 10:35 e-Cigarette/Vaping Use Never Used 08/10/25 10:35 Thrive Assessment: Date of Thrive Assessment Date Thrive assessed 01/04/25 08/10/25 10:35 Narrative General: Alert and oriented, Well nourished, No acute distress. Eye: Pupils are equal, round and reactive to light, Intact accommodation, Extraocular movements are intact, Normal conjunctiva, Vision unchanged. HENT: Normocephalic, Atraumatic, Tympanic membranes are clear, Normal hearing, Oral mucosa is moist, No pharyngeal erythema, Ear canals patent. Respiratory: Lungs CTA bilaterally, No wheeze, Respirations are non-labored. Cardiovascular: Regular rate, Regular rhythm, S1 auscultated, S2 auscultated, No murmur, Good pulses equal in all extremities, Normal peripheral perfusion, Mild edema noted, Varicosities present. Gastrointestinal: Soft, Non-tender, Non-distended, Normal bowel sounds, No organomegaly. Musculoskeletal: Normal range of motion, Normal strength, No tenderness, No swelling, No deformity, Normal gait. Integumentary: Warm, Dry, N[place]bitt, Intact. Neurologic: Alert, Oriented, Normal sensory, Normal motor function, No focal defects, Cranial Nerves II-XII are grossly intact, Normal deep tendon reflexes. Psychiatric: Cooperative, Appropriate mood & affect, Normal judgment. Coding Level of Care Code Est Pt Level 4 (60814) Complex EM visit Add On G2211 Diagnoses Primary hypertension I10 Other specified hypothyroidism E03.8 Hypothyroidism type: other Hand cramps R25.2 Lower extremity edema R60.0 Irritable bowel syndrome, unspecified type K58.9 Irritable bowel syndrome type: unspecified Hyperlipidemia, unspecified hyperlipidemia type E78.5 Hyperlipidemia type: unspecified Assessment & Plan Assessment & Plan (1) Primary hypertension: Comment: - The patient has had consistently elevated blood pressures in the 140s-160s since at least November, posing a cardiovascular risk. - Will initiate a small dose of amlodipine 2.5 mg daily to manage this. - The prescription was sent to her pharmacy Code(s): I10 - Essential (primary) hypertension Category: Medical (2) Hypothyroid: Comment: - Condition is stable on levothyroxine 75 mcg daily. - The patient has refills available until next year. - The plan is to continue the current medication. Code(s): E03.9 - Hypothyroidism, unspecified Category: Medical Qualifiers: Hypothyroidism type: other Qualified Code(s): E03.8 - Other specified hypothyroidism (3) Hand cramps: Comment: - Symptoms are attributed to a likely electrolyte imbalance, possibly related to her diet. - The plan is to recommend electrolyte drinks, a B-complex supplement, and an overall healthier diet. Code(s): R25.2 - Cramp and spasm Category: Medical (4) Lower extremity edema: Comment: - Physical exam revealed mild swelling and varicose veins with associated tenderness. - The plan is for the patient to elevate her legs when sitting and to start wearing compression stockings. Code(s): R60.0 - Localized edema Category: Medical (5) IBS (irritable bowel syndrome): Comment: - These are chronic issues, with elevated CRP likely related to underlying inflammation. - The plan is to continue dicyclomine as needed and reinforce the importance of proper diet and regular bowel movements to manage symptoms. Code(s): K58.9 - Irritable bowel syndrome, unspecified Category: Medical Qualifiers: Irritable bowel syndrome type: unspecified Qualified Code(s): K58.9 - Irritable bowel syndrome without diarrhea (6) Hyperlipidemia: Comment: - Cholesterol is high with an LDL of 183 mg/dL and total cholesterol of 276 mg/dL. - The patient declines statin therapy. - Plan is to focus on managing other cardiovascular risk factors, such as blood pressure, and to encourage improved dietary habits. Code(s): E78.5 - Hyperlipidemia, unspecified Category: Medical Qualifiers: Hyperlipidemia type: unspecified Qualified Code(s): E78.5 - Hyperlipidemia, unspecified Plan: Health Maintenance: - Diet: Patient admits to not eating a proper diet; importance of a healthy diet for managing cholesterol, diverticulitis, and cramps was discussed. - Supplements: Recommended trying electrolyte drinks/pouches and a good B-complex vitamin for cramps. - Cardiovascular Risk Reduction: Amlodipine 2.5 mg initiated for hypertension as one way to reduce cardiovascular risk, given that she is not taking a statin for her hyperlipidemia. - Pending diagnostics: Patient instructed to follow up on cardiac calcium score results from an outside facility. - Follow-up: Patient advised to schedule her annual physical for December, at which time blood work including sugars will be checked. Patient was informed and verbally consented to the use of an ambient scribe for clinic note documentation during this visit. Plan I discussed with the patient her consistently elevated blood pressure readings over the past year, noting that they have been in the 140s and even 160s. I explained that while she feels it is related to stress, controlling this is important for her heart health, and we will start a very small dose of amlodipine 2.5 mg to help manage it. We reviewed her lab results, which show high cholesterol (LDL 183 mg/dL). I acknowledged her decision not to take statin medications and noted that controlling her blood pressure is another way to reduce her cardiovascular risk. For her hand cramping, I suggested it may be due to an electrolyte imbalance and recommended she try electrolyte supplements and a B-complex vitamin. I noted the swelling and varicosities in her legs found on exam and educated her to elevate her legs and wear compression stockings to help with the fluid buildup. I also instructed her to contact the facility in [place] to request that the results of her cardiac calcium score be sent to our office, as we have not received them. She agreed to call us with the results once she obtains them. We will have her return in December for her annual physical, at which time we will repeat her blood work. Medications: New amlodipine 2.5 mg PO DAILY 90 tabs 0RF Changed From dicyclomine 10 mg PO ONCE K58.9 - Irritable bowel syndrome, unspecified, R15.9 - Full incontinence of feces To dicyclomine 10 mg PO BID 60 caps 0RF K58.9 - Irritable bowel syndrome, unspecified, R15.9 - Full incontinence of feces Refilled levothyroxine 75 mcg PO DAILY 90 tabs 1RF Patient Instructions: - Start taking amlodipine 2.5 mg once a day for high blood pressure. I have sent this prescription to your [facility] pharmacy in [place]. - For the swelling in your legs, please keep your legs elevated as much as possible when sitting and start wearing compression stockings. - To help with hand and foot cramps, try drinking beverages with electrolytes or taking a B-complex vitamin supplement. - Please contact the facility in [place] where you had your heart calcium scan and ask them to send the results to our office. Call us to let us know the results when you receive them. - Please contact our office to schedule your annual physical exam for December. We will repeat some blood work at that time. - If you need a refill on your thyroid medication, please have the pharmacy send us a request.
[2025-08-10 10:32] VITALS: BP 140/68; PULSE 75; RESP 18; TEMP 36.3; O2SAT 96; BMI 24.6
== END 2025-08-10 10:56 | disposition home or self-care (01) ==
PROVIDERS: PCP Student in an Organized Health Care Education/Training Program; Visit Provider Student in an Organized Health Care Education/Training Program
DX: I10 Essential (primary) hypertension (principal); E03.8 Other specified hypothyroidism; R25.2 Cramp and spasm; R60.0 Localized edema; K58.9 Irritable bowel syndrome, unspecified; E78.5 Hyperlipidemia, unspecified

== ENCOUNTER → 2025-08-10 10:24 | Outpatient (BNVA) | payer MEDICARE, SELFPAY | PROVIDERS: PCP Internal Medicine; Visit Provider Student in an Organized Health Care Education/Training Program | DX: I10 Essential (primary) hypertension (principal); E03.8 Other specified hypothyroidism; R25.2 Cramp and spasm; R60.0 Localized edema; K58.9 Irritable bowel syndrome, unspecified; E78.5 Hyperlipidemia, unspecified | CPT/HCPCS: 99212 ==

== ENCOUNTER 2025-08-29 11:31 | Outpatient (AMB) | payer MEDICARE, SELFPAY ==
--- NOTE | 2025-08-29 11:40 | A.OFFVIS_ITS ---
Vital Signs 08/29/25 11:43 Height 5 ft 1 in Weight 130 lb 1.164 oz BMI 24.6 BP 137/63 Blood Pressure Location Lt brachial Position Sitting Pulse 72 Intake Visit Reasons: 4 week ibs Intake Note: Yolanda presents in the office as a 4 week follow up for IBS. CC: no concerns today. Curing Bin Operator Required: No Allergies No Known Allergies (No Known Allergies*) Allergy (Verified 08/29/25 11:44) HPI HPI 4 week ibs: Details: Assessment & Plan (1) IBS (irritable bowel syndrome): Code(s): K58.9 - Irritable bowel syndrome, unspecified Category: Medical (2) Fecal incontinence: Code(s): R15.9 - Full incontinence of feces Category: Medical Plan We initiated dicyclomine 10 mg twice a day at the last visit - The patient is an 80-year-old female presenting with symptoms related to Irritable Bowel Syndrome. - She experiences bowel movement issues, with regular morning movements but looseness and incontinence in the afternoon, leading to inconvenience and discomfort. - She has trialed dicyclomine but is cautious about its use due to fear of constipation, which is unusual for her history. She is reassured that she should utilize this medication as it is very unlikely in her case to cause constipation. I suggest she start taking at least 1 and perhaps 2 capsules before her midday meal. - she has not yet been contacted for her colonoscopy. Return office visit in 4 weeks COLONOSCOPY BIOPSY CORRESPONDENCE On 07/31/25 @ 14:36 Elin Singh Wrote To Mae Acosta Okay, just checking no one has kept me up-to-date as to where we are at thank you On 07/31/25 @ 13:19 Mae Acosta Wrote To Elin Singh yep we are currently scheduling February patient's once we get to march we will schedule her On 07/31/25 @ 12:33 Elin Singh Wrote To [facility] pt still waiting to have appt booked. On 04/24/25 @ 13:09 Mariam La Wrote To [facility] patient called - lvm- her prep is over 100$ and would like something else, unless this prep is necessary. Call to patient - suprep ordered. Denies constipation. She had a colonoscopy before and would like that prep. Preps reviewed- believes it was miralax. Reviewed she will be get a call from our community engagement specialist to book procedure and I will call a few day prior to review. Prep ordered. On 04/17/25 @ 13:40 Elin Singh Wrote To [facility] Ordering Provider: [B] Provider Performing Procedure: [] Medical Clearance: [] Procedure and CPT: [PHX TA, recent diverticulitis x 3] Anesthesia: [] Time Needed: [] Equipment: [] Order Medications: [] Medications to be Held Prior to Surgery (GLP1-Semaglutide, Dulaglutide, Liraglutide, Exenatide, Tirzepatide, Lixisenatide)(DPP4-Sitigliptin, Saxagliptin, Linagliptan, Alogliptan): [NO] Patient Follow-Up: [Y] TODAY'S VISIT [facility] Medical History Lower extremity edema Hand cramps Primary hypertension Gastrointestinal stromal tumor Degenerative joint disease of right hip Lower back pain Thyroid cancer Surgical History H/O thyroidectomy H/O colonoscopy (~02/22/19) Family History Mother Colon cancer Father Colon cancer Social History Housing: House Alcohol intake: current Alcohol intake frequency: holidays/special occasions only Patient Tobacco Use Status: Never used Tobacco e-Cigarette/Vaping Use: Never Used service: No Current occupational status: retired Cognitive needs: No Hearing needs: No Vision needs: Yes (rx glasses) Physical Exam Vital Signs: Last Vital Signs Pulse 72 08/29/25 11:43 BP 137/63 08/29/25 11:43 BMI result Body Mass Index 24.6 Assessment & Plan Assessment & Plan (1) IBS (irritable bowel syndrome): Comment: - These are chronic issues, with elevated CRP likely related to underlying inflammation. - The plan is to continue dicyclomine as needed and reinforce the importance of proper diet and regular bowel movements to manage symptoms. Code(s): K58.9 - Irritable bowel syndrome, unspecified Category: Medical Qualifiers: Irritable bowel syndrome type: unspecified Qualified Code(s): K58.9 - Irritable bowel syndrome without diarrhea (2) Fecal incontinence: Code(s): R15.9 - Full incontinence of feces Category: Medical Plan Subjective Follow-up for bowel symptoms after starting dicyclomine. Patient reports significant improvement since initiating the medication, with decreased diarrhea, cramping, and episodes of fecal incontinence. Bowel frequency has decreased from two to four bowel movements by noon to approximately once daily with a regular pattern; an additional later-day movement that had been problematic has also improved. Patient is taking one dose of dicyclomine and feels this is sufficient at present. No concerns reported with side effects. Patient expresses desire to proceed with colonoscopy and inquires about status. History notable for gastrointestinal stromal tumor (GIST) diagnosed around 2004, previously followed by oncology (including evaluation at [facility] and local oncologist Dr. Meraz). Discussed typical distribution of GIST along the GI tract and that while liver metastasis can occur with extraintestinal spread, this is not generally expected. Objective Assessment & Plan Bowel symptoms with prior diarrhea, cramping, and incontinence?improved on dicyclomine: Symptoms markedly improved with current regimen; patient satisfied with control and decreased frequency to about once daily. - Continue dicyclomine at current dose. - May consider dose increase in the future if symptom control wanes. - Colonoscopy is pending; patient remains on the scheduling list. Will coordinate timing and adjust follow-up around the procedure date as needed. - Schedule follow-up in 6 months, sooner if symptoms worsen. History of gastrointestinal stromal tumor (circa 2004): Remote history with prior oncology follow-up. Reviewed that GISTs can occur throughout the GI tract; extraintestinal spread can involve the liver but is not routinely expected. - Reviewed disease information and prior history with the patient; no immediate changes to management today. COLONOSCOPY BIOPSY Coding Level of Care Code Est Pt Level 3 (74928) Diagnoses Irritable bowel syndrome, unspecified type K58.9 Irritable bowel syndrome type: unspecified Fecal incontinence R15.9
[2025-08-29 11:43] VITALS: BP 137/63; PULSE 72; BMI 24.6
== END 2025-08-29 12:09 | disposition home or self-care (01) ==
LOC: HO.HGI 11:31
PROVIDERS: PCP Internal Medicine; Visit Provider Nurse Practitioner
DX: K58.9 Irritable bowel syndrome, unspecified (principal); R15.9 Full incontinence of feces
CPT/HCPCS: 99213

== ENCOUNTER → 2025-08-29 11:31 | Outpatient (BNVA) | payer MEDICARE, SELFPAY | PROVIDERS: PCP Internal Medicine; Visit Provider Nurse Practitioner | DX: K58.1 Irritable bowel syndrome with constipation (principal); K58.0 Irritable bowel syndrome with diarrhea; R15.9 Full incontinence of feces | CPT/HCPCS: 99212 ==